=== PATIENT | male | born 1935 | race Caucasian/White ===

== ENCOUNTER 2016-03-29 06:59 | Outpatient (CLI) | payer MEDICARE, OTHER ==
[~2016-03-29] VITALS: Ht 176.5 cm; Wt 96.8 kg
--- NOTE | ~2016-03-29 | HEMODYNAMI ---
PATIENT:ERLIN CARDOZA MEDICAL RECORD: [id number] : 37 LOCATION:[facility] ADMISSION DATE: 03/29/16 Generatedon:03/29/201610:01 Patient name: ERLIN CARDOZA Patient #: [id number] : 1935 Date of study: 03/29/2016 Page: Of Hemodynamic Procedure Report Patient Data Patient Demographics Procedure consent was obtained First Name: ERLIN Gender: Male Last Name: SONY : 1935 Middle Initial: L Age: 80 year(s) Patient #: [id number] Race: SSN: [id number] Additional ID: [id number] Contact details Address: [address] [place] [address] RO[address] State: [place] City: [place] Zip code: [address] Past Medical History History of disease Date Diagnosis Comments CAD Allergies Allergen Reaction Date Comments Reported Iodine 06/27/2015 Other allergy 03/19/2016 iodine Admission Admission Data Admission Date: 03/29/2016 Admission Time: 6:59 Admit Source: Other Height (in.): 69 BSA: 2.12 (m2) Height (cm.): 175.26 BMI: 31.45 (kg/m2) Weight (lbs.): 213 Weight (kg.): 96.62 Lab Results Lab Result Date: 03/29/2016 Lab Result Time: 0:00 Biochemistry Name Units Result Min Max BUN mg/dl 19 --(----)*- 7 18 Creatinine mg/dl 1.1 --(--*-)-- 0.6 1.3 CBC Name Units Result Min Max Hemoglobin g/dl 12.8 -*(----)-- 13.5 17.5 Procedure Procedure Types Cath Procedure PCI Procedure Coronary Stent Initial Procedure Description Procedure Date Procedure Date: 03/29/2016 Procedure Start Time: 9:50 Procedure End Time: 10:00 Procedure Staff Name Function Zhang Angel MD Performing Physician Peggy Vaughan RN Nurse Jonathan Guillen RT Monitor Ant Varner RT Foot Piece Assembler Adrianne Peterson RT Scrub Procedure Data Cath Procedure Fluoroscopy Diagnostic fluoroscopy Total fluoroscopy Time: 1.8 time: 1.8 min min Diagnostic fluoroscopy Total fluoroscopy dose: 229 dose: 229 mGy mGy Contrast Material Contrast Material Type Amount (ml) Isovue 300 32 Entry Location Entry Primary Successful Side Size Upsize Upsize Entry Closure Succes sful Closure Location (Fr) 1 (Fr) 2 (Fr) Remarks Device Remarks Femoral Left 5 Fr 6 Fr artery Short Procedure Complications No complications Procedure Medications Medication Administration Route Dosage Oxygen NC 2 l/min Heparin Flush Bag added to field 2 bags (1000units/500ml NS) Lidocaine 2% added to field 20 Versed I.V. 1 mg Fentanyl I.V. 50 mcg Heparin Bolus I.V. 4000 units Versed I.V. 1 mg Fentanyl I.V. 50 mcg Hemodynamics Rest BSA: 2.12 (m2) HGB: 12.8 (g/dl) O2 Consumption: Estimated: 251.78 (ml/min) O2 Co nsumption indexed: Estimated:118.76 (ml/min/m) Heart Rate: 82 (bpm) Snapshots Pre Cath Intra NCS Post Cath Vital Signs Time Heart Resp SPO2 NIBP (mmHg) Rhythm Pain Sedation Rate (ipm) (%) Status Level (bpm) 9:29:32 83 18 97 172/87(132) NSR 0 (11) 10(A) , No pain 9:33:54 80 17 96 152/80(121) NSR 0 (11) 10(A) , No pain 9:38:10 80 16 97 136/70(101) NSR 0 (11) 10(A) , No pain 9:42:24 77 14 97 120/66(92) NSR 0 (11) 10(A) , No pain 9:46:34 75 16 96 114/61(86) NSR 0 (11) 9(A) , No pain 9:50:40 77 15 96 119/65(85) NSR 0 (11) 9(A) , No pain 9:54:48 76 17 96 125/64(89) NSR 0 (11) 9(A) , No pain 9:58:49 77 14 98 119/63(89) NSR 0 (11) 9(A) , No pain Medications Time Medication Route Dose Verified Delivered Reason Notes Effectiveness by by 9:32:31 Oxygen NC 2 Zhang Peggy Per physician l/min Stanley Vaughan RN 9:32:38 Heparin Flush added 2 Zhang Laurey used for Bag to bags Stanley Angel MD procedure (1000units/500ml field NS) 9:32:45 Lidocaine 2% added 20ml Zhang Zhang used for to vial Stanley Angel MD procedure field 9:49:00 Versed I.V. 1 mg Zhang Peggy for sedation Stanley Vaughan RN 9:49:19 Fentanyl I.V. 50 Zhang Peggy for sedation mcg Stanley Vaughan RN 9:52:18 Versed I.V. 1 mg Zhang Peggy for sedation Stanley Vaughan RN 9:52:28 Fentanyl I.V. 50 Zhang Peggy for sedation mcg Stanley Vaughan RN 9:54:03 Heparin Bolus I.V. 4000 Zhang Peggy for dose units Stanley Vaughan RN anticoagulation verified wtih dr angel Procedure Log Time Note 9:10:05 nAt Varner RT(R) sent for patient. Start room use. 9:25:20 Patient received from Outpatients to CCL 1 Alert and oriented. Tansferred to table in Supine position. 9:26:35 Admit Source: Other 9:28:03 Diagnostic Cath status Elective 9:28:13 Time tracking: Regular hours 9:28:17 Plan of Care:Hemodynamics will remain stable., Cardiac rhythm will remain stable., Comfort level will be maintained., Respiratory function will remain adequate., Patient/ family verbilizes understanding of procedure., Procedure tolerated without complication., Recovers from procedure without complications.. 9:28:21 Warm blankets applied, and robert hugger turned on for patient comfort. 9:28:21 Correct patient and procedure confirmed by team. 9:28:22 Signed procedure consent form obtained from patient. 9:28:23 ECG and BP/O2 sat monitors applied to patient. 9:28:23 Vital chart was started 9:28:34 Rhythm: sinus rhythm 9:28:36 Full Disclosure recording started 9:28:47 H&P Date Dictated: 03/29/2016 New H&P dictated by physician.. 9:28:48 Pre-procedure instructions explained to patient. 9:28:48 Pre-op teaching completed and patient verbalized understanding. 9:28:50 Family in waiting room. 9:28:51 Patient NPO since Midnight. 9:28:55 Is the patient allergic to Iodine/contrast media? Yes. 9:29:04 Was the patient premedicated? Yes 9:29:05 Is patient on blood thinner?Yes 9:29:19 ACC The patient was administered the following blood thiners within the last 24 hours: ACCPlavix 9:29:20 Patient diabetic? Yes. 9:29:22 If diabetic: On Metformin? Yes 9:29:25 If on Metformin: Last Dose? 03/28/2016 9:29:28 Previous problem with sedation/anesthesia? No ? 9:29:29 Snore? Yes 9:29:30 Sleep apnea? No 9:29:31 Deviated septum? No 9:29:32 Opens mouth fully? Yes 9:29:32 Sticks out tongue? Yes 9:29:40 Dentures? Yes IN TIGHT 9:29:43 Pre procedure: left dorsailis pedis pulse 1+ Palpable, but thready & weak; easily obliterated 9:29:52 Patient pain scale 0/10 ?. 9:29:58 IV patent on arrival in left forearm with 0.9% NaCl at O. 9:30:01 Lab results completed and on chart. 9:30:04 Left groin area was prepped with chlora-prep and draped in sterile fashion 9:30:06 Alarms reviewed by R. N. 9:30:06 Sharps counted by scrub and verified by R.N. 9:30:35 Lab Result : BUN 19 mg/dl 9:30:35 Lab Result : Hemoglobin 12.8 g/dl 9:30:35 Lab Result : Creatinine 1.1 mg/dl 9:32:31 Oxygen 2 l/min NC was given by Peggy Vaughan RN; Per physician; 9:32:38 Heparin Flush Bag (1000units/500ml NS) 2 bags added to field was given by Zhang Angel MD; used for procedure; 9:32:45 Lidocaine 2% 20ml vial added to field was given by Zhang Angel MD; used for procedure; 9:33:59 Use device set Femoral PCI 9:34:01 Tegaderm 4 x 4 opened to sterile field. 9:34:01 Acist Manifold opened to sterile field. 9:34:06 Acist Syringe opened to sterile field. 9:34:07 Acist Hand Control opened to sterile field. 9:34:07 Bag Decanter opened to sterile field. 9:34:07 Cardinal Cath Pack opened to sterile field. 9:34:08 Terumo 6Fr Wheatland Sheath opened to sterile field. 9:34:08 St Denis 260cm J .035 wire opened to sterile field. 9:34:09 Merit BasixCompak Inflation Kit opened to sterile field. 9:34:21 Baseline sample Acquired. 9:38:05 Airway obstruction? No ? 9:40:21 Zero performed for pressure channel P1 9:46:09 Patient Height : 175.26 cm 9:46:12 Patient Weight : 96.62 kg 9:48:13 --------ALL STOP TIME OUT------ 9:48:14 Final Timeout: patient, procedure, and site verified with staff and physician. All members of the team are in agreement. 9:48:15 Left groin site verified by team. 9:48:18 Physical assessment completed. ASA score P 2 - A patient with mild systemic disease as per Zhang Angel MD. 9:48:22 Sedation plan: IV Moderate Sedation Versed, Fentanyl 9:49:00 Versed 1 mg I.V. was given by Peggy Vaughan RN; for sedation; 9:49:19 Fentanyl 50 mcg I.V. was given by Peggy Vaughan RN; for sedation; 9:50:28 Procedure started. 9:50:49 Local anesthetic to left femerol artery with Lidocaine 2% by Zhang Angel MD.INITIAL ACCESS ONLY 9:50:57 A 5 Fr sheath was inserted into the Left Femoral artery 9:52:18 Versed 1 mg I.V. was given by Peggy Vaughan RN; for sedation; 9:52:28 Fentanyl 50 mcg I.V. was given by Peggy Vaughan RN; for sedation; 9:52:45 nPicker Launcher 6Fr HS II SH guide catheter opened to sterile field. 9:53:11 Ballesteros Whisper J 300cm 0.014 guide wire opened to sterile field. 9:53:11 Terumo 5Fr Wheatland Sheath opened to sterile field. 9:53:27 Sheath upsized to a 6 Fr Short. 9:53:47 6 Fr HS 2 SH guide catheter was inserted over the wire 9:54:03 Heparin Bolus 4000 units I.V. was given by Peggy Vaughan RN; for anticoagulation; dose verified wt dr angel 9:54:43 ACC PCI Site: pRCA has 80% stenosis. 9:54:45 ACC Pre-intervention AG Flow is 3. 9:54:48 WHISPER wire advanced. 9:56:08 Inflation Number: 1 A Medtronic Resolute 3.5 X 15 stent was prepped and advanced across the Prox RCA. The stent was deployed at 17 GALA for 0:13 (min:sec). 9:56:19 Stent catheter was removed intact over wire. 9:56:20 Wire removed. 9:56:20 Guide catheter removed. 9:56:23 ACC Post-intervention AG Flow is 3. 9:56:55 Contrast amount:Isovue 300 32ml. 9:57:10 Procedure ended.(Physican Out) 9:57:20 Fluoroscopy time 01.80 minutes. 9:57:24 Flurop Dose total: 229 9:57:24 Fluoroscopy dose: 229 mGy 9:57:26 Sharps counted by scrub and verified by R.N. 9:57:26 Insertion/operative site no bleeding no hematoma. 9:57:29 Post-op/insertion site Left Femoral artery dressed using a 4 x 4 and Tegaderm. 9:57:33 Post left femerol artery:stable 9:57:34 Post Procedure Pulses reassessed and unchanged 9:57:37 Post procedure rhythm: sinus rhythm 9:57:39 Post procedure instruction explained to patient.Patient verbalizes understanding. 9:57:53 Vascade 6/7 Fr Closure Device opened to sterile field. 9:58:01 Procedure type changed to Cath procedure, PCI procedure, Coronary Stent Initial 9:58:23 Procedure and supply charges have been captured, reviewed, submitted and are correct. 9:58:27 Procedure Complication : No complications 10:00:21 Vital chart was stopped 10:00:21 See physician's report for complete and final results. 10:00:24 Report given to Post Procedure Room. 10:00:27 Patient transfered to Post Procedure Room with Stretcher. 10:00:30 Procedure ended. 10:00:30 Full Disclosure recording stopped 10:00:36 End room use (Document Last) Intervention Summary Intervention Notes Time ActionType Lesion and Equipment Action# Pressure Duration Attributes Used 9:56:[address] stent Prox RCA Medtronic 1 17 00:13 Resolute 3.5 X 15 stent Device Usage Item Name Manufacture Quantity Catalog Hospital Part Current Minima l Lot# / Number Charge Number Stock Stock Serial# Code Tegaderm 4 1 [id number] [id number] [id number] 5 x 4 Acist Acist 1 05842 187376 074033 869074 5 Manifold Medical Systems Inc Acist Acist 1 17948 179346 798807 664387 20 Syringe Medical Systems Inc Acist Hand Acist 1 95667 227349 497570 822543 5 Control Medical Systems Inc Bag Microtek 1 2002S 465946 22869 864818 5 DecFacile System Medical Inc. Cardinal Cardinal [address] [address] 83715 853841 5 Cath Pack Health Terumo 6Fr Terumo 1 [id number] 112982 645448 235307 [address] Denis 1 384835 868170 470527 464272 30 260cm J .035 wire Merit Merit 1 [id number] 005720 570632 987397 15 BasixIntermountain Healthcarek Medical Inflation Kit Medtronic Medtronic 1 [id number] 569097 76562 347848 1 Launcher 6Fr HS II SH guide catheter Ballesteros Ballesteros 1 [id number] 395567 871389 738263 5 Whisper J Vascular 300cm 0.014 guide wire Terumo 5Fr Terumo 1 [id number] 163654 926083 604513 40 Wheatland Sheath Medtronic Medtronic 1 [id number] 477460 710440 3 [id number] Resolute 3.5 X 15 stent Vascade 6/7 Cardiva 1 [id number] 452038 731759 374338 5 Fr Closure Medical, Device Inc. Signature Audit [place] Stage Time Signature Unsigned Intra-Procedure 03/29/2016 Jonathan Guillen 10:01:38 AM RT(R) Signatures Monitor : Jonathan Guillen RT Signature : Date : Time : [address] [place] [address]
[~2016-03-29 06:59] MED LIST: BAYER CHEWABLE81 MG PO; COREG6.25 MG PO; DESERYL100 MG PO; GEMFIBROZIL600 MG PO; GLUCOPHAGE500 MG PO; LANTUS INSULIN10 ML SC; LASIX20 MG PO; NOVOLOG100 U/M1 SC; PLAVIX75 MG PO; PREDNISONE20 MG PO; PRINIVIL20 MG PO; PROTONIX40 MG PO; QUININE SULFAT324 MG PO; ZOCOR40 MG PO
[2016-03-29 08:04] LABS: BASOPHILS 0.1 % (0.0-2.0); EOSINOPHILS 0 % (0-7); HEMATOCRIT 41.6 % (42.0-54.0); HEMOGLOBIN 12.8 g/dL (13.5-17.5); IMMATURE GRANULOCYTES 0.7 % (0-5); LYMPHOCYTES 13.3 % (15-50); MCH 25.4 pg (26.0-34.0); MCHC 30.8 g/dL (31.0-37.0); MCV 82.7 fL (80.0-100.0); MEAN PLATELET VOLUME 11.8 fL (7.4-10.4); NEUTROPHILS 84.9 % (40-80); RBC 5.03 10x6/uL (4.20-6.10); RDW 16.3 % (11.5-14.5); WBC 7.2 10x3/uL (4.8-10.8)
[2016-03-29 08:11] VITALS: BP 155/74; Ht 176.5 cm; Wt 96.8 kg
[2016-03-29 08:16] LABS: ANION GAP 13.7 mmol/L (8-16); CALCIUM 9.1 mg/dL (8.5-10.1); CARBON DIOXIDE 26.3 mmol/L (21.0-32.0); CREATININE - SERUM 1.1 mg/dL (0.6-1.3)
[2016-03-29 08:30] LABS: PLATELET COUNT 183 10x3/uL (130-400)
--- NOTE | 2016-03-29 10:20 | NUR ---
RESTING QUIETLY WITH EYES CLOSED RESPONDS TO VERBAL WITH CHEST PAIN DENIED. HR 77 BP 159/70 02 AT 2 LITERS NO DISTRESS NOTED. 6 FR VASCADE LEFT GROIN CDI NO BLEEDING NO HEMATOMA NOTED. INSTRUCTED PATIENT TO KEEP HEAD FLAT ON PILLOW WITH LLE STRAIGHT
--- NOTE | 2016-03-29 11:19 | NUR ---
6 FR VASCADE L/GROIN CDI NO BLEEDING NO HEMATOMA NOTED. VSS WITH NEEDS PROVIDED TO BEDSIDE. WILL MONITOR
--- NOTE | 2016-03-29 11:39 | NUR ---
CHEST PAIN DENIED WITH VSS. 6 FR VASCADE L/GROIN CDI NO BLEEDING NO HEMATOMA NOTED. SANDWICH TRAY AND SODA TO BEDSIDE
--- NOTE | 2016-03-29 11:55 | NUR ---
RESTING QUIETLY WITH EYES CLOSED RESPIRATIONS EVEN UNLABORED. VSS 6 FR VASCADE L/GROIN CDI NO BLEEDING NO HEMATOMA NOTED. WILL MONITOR
--- NOTE | 2016-03-29 12:30 | NUR ---
6 FR VASCADE L/GROIN REMAINS STABLE NO BLEEDING NO HEMATOMA NOTED. PATIENT ALERT AND ORIENTED WITH CHEST PAIN DENIED VISITING WITH FAMILY AT SIDE
--- NOTE | 2016-03-29 13:01 | NUR ---
PATIENT SLEEPING QUIETLY WITH RESPIRATIONS EVEN NO DISTRESS NOTED. WILL MONITOR
--- NOTE | 2016-03-29 13:38 | NUR ---
L/GROIN CDI NO BLEEDING NO HEMATOMA NOTED. CHEST PAIN IS DENIED. REPOSITIONED TO SITTING WITH HOB UP 30 DEGREES. AT SIDE
--- NOTE | 2016-03-29 14:21 | NUR ---
PIV REMOVED FROM LEFT ARM WITH DRESSING APPLIED. L/GROIN REMAINS CDI NO BLEEDING NO HEMATOMA NOTED. CHEST PAIN IS DENIED. PATIENT UP TO GET DRESSED FOR DISCHARGE WITH ASSIST FROM 1430 DISCHARGE INSTRUCTIONS GONE OVER WITH PATIENT AND FAMILY TRANSPORTED VIA TO [facility] [place] FOR FAMILY TO DRIVE HOME CHEST PAIN DENIED
--- NOTE | 2016-04-02 11:11 | OP ---
PATIENT NAME: ERLIN CARDOZA MEDICAL RECORD: [id number] :37 LOCATION:[facility] ADMISSION DATE: SURGEON: ALICE DEL VALLE MD DATE OF OPERATION: 03/29/2016 PROCEDURES: 1. PTCA, stent RCA. 2. Selective coronary angiography. INDICATION: Angina and coronary artery disease. PROCEDURE IN DETAIL: After informed consent was obtained and after detailed explanation of risks, benefits, as well as alternative therapies, the patient elected to proceed with angiogram and angioplasty. The left femoral area was prepped and draped in normal sterile fashion. Left femoral artery was cannulated via modified Seldinger technique with placement of 6-Ukrainian sheath. All catheters exchanged through this sheath. FINDINGS: The right coronary has an 80% stenosis proximally. This was addressed with 3.5 x 15 mm Resolute stent. Result was 0% residual stenosis. OVERALL IMPRESSION: Successful percutaneous transluminal coronary angioplasty stent of the right coronary artery going from 80% initial stenosis to 0% residual. TRANSINT:[id number] Voice Confirmation ID: [id number] DOCUMENT ID: [id number] ALICE DEL VALLE MD at 1111 CC: [id number] DICTATION DATE: 03/29/16 0959 TRUCK ASSEMBLER: 03/29/16 1110 [facility] CLI 03/29/[address] [address]
--- NOTE | 2016-04-02 11:11 | HP ---
PATIENT: ERLIN CARDOZA MEDICAL RECORD: [id number] ACCOUNT: [id number] LOCATION:[facility] : 37 ADMISSION DATE: 03/29/16 HISTORY AND PHYSICAL EXAMINATION ADMITTING DIAGNOSES: 1. Angina. 2. Coronary artery disease. 3. Recent percutaneous transluminal coronary angioplasty stent of the left circumflex with concomitant disease of the right coronary artery. 4. Hypertension. 5. Hyperlipidemia. HISTORY OF PRESENT ILLNESS: This is a gentleman who presents with anginal symptomatology, found to have 2-vessel coronary artery disease of the left circumflex and RCA, underwent successful PTCA stent of the circumflex. He is now brought back for PTCA stent of the RCA in a staged fashion. PHYSICAL EXAMINATION: GENERAL APPEARANCE: Well-nourished, well-developed, appears stated age. Level of distress, comfortable. PSYCHIATRIC: Mental status, alert, normal affect. Orientation, oriented to time, place and person. EYES: Lids and conjunctiva, noninjected. No discharge, no pallor. ENT: Lips, teeth, gums, normal dentition. Oropharynx, no cyanosis, no pallor. NECK: Carotid arteries, bilateral normal upstroke, no bruits, no thrills. JUGULAR VEINS: No jugular venous pressure or distention. CERVICAL LYMPH NODES: Nontender, nonenlarged. THYROID: Not enlarged. Nontender. No nodules. LUNGS: Respiratory effort, unlabored. CHEST: Normal curvature. No thoracic deformity. No chest wall tenderness. Percussion, resonant. Auscultation, clear. No wheezes, no rales, no rhonchi. CARDIOVASCULAR: Precordial exam, nondisplaced. No heaves or pericardial thrills. Rate and rhythm, regular. Heart sounds, normal S1, normal S2. No S3, no gallop, no rub. Systolic murmur, not heard. Diastolic murmur, not heard. EXTREMITIES: No cyanosis, no edema. Peripheral pulses, full and equal in all extremities, except as noted. No bruits appreciated. ABDOMEN: Soft, nondistended. Normal aorta. No bruit. Nontender. No masses. Liver, nontender, no hepatomegaly. Spleen, nontender, no splenomegaly. MUSCULOSKELETAL: No joint tenderness. No joint swelling. No erythema. NEUROLOGICAL: Normal gait, normal strength, normal tone. SKIN: Warm and dry. REVIEW OF SYSTEMS: The patient reports easy bruising but reports no swollen glands. The patient reports no fever, no night sweats, no significant weight gain, no significant weight loss. No significant exercise tolerance. The patient reports no dry eyes, no irritation, no vision change. Patient reports no difficulty hearing and no ear pain. Patient reports no frequent nose bleeds or nose and sinus problems. Patient reports on arm pain on exertion. No shortness of breath while lying down. No history of heart murmur. Patient reports no cough, no wheezing or coughing up blood. Patient reports no abdominal pain, no vomiting. Normal appetite. No diarrhea and not vomiting blood. No nausea and no constipation. Patient reports no incontinence. No difficulty urinating. No hematuria. No increased frequency. Patient reports no muscle aches. No weakness, no arthralgias, no back pain. No swelling of the HISTORY AND PHYSICAL [id number] SONYERLIN L extremities. Patient reports no abnormal mole, no jaundice, no rashes. Reports no loss of consciousness. No weakness and no numbness. No seizures, dizziness, or headaches. The patient reports no depression, no sleep disturbance, feeling safe in a relationship and no alcohol abuse. Patient reports on fatigue. Reports no runny nose or sinus pressure. No itching, no hives, and no frequent sneezing. OVERALL IMPRESSION: Anginal symptomatology with significant disease of the right coronary artery. We will proceed with percutaneous transluminal coronary angioplasty stent of the right coronary artery. TRANSINT:[id number] Voice Confirmation ID: [id number] DOCUMENT ID: [id number] ALICE DEL VALLE MD at 1111 CC: [id number] DICTATION DATE: 03/29/1648 MILIEU THERAPIST: 03/29/16 0908 [facility] CLI 03/29/16 [place] [address]
== END 2016-03-29 14:26 | disposition home or self-care (01) ==
LOC: D.CATH 06:59
PROVIDERS: Internal Medicine Interventional Cardiology
DX: I25.10 Atherosclerotic heart disease of native coronary artery without angina pectoris (principal); R06.02 Shortness of breath; E11.9 Type 2 diabetes mellitus without complications

== ENCOUNTER 2016-07-09 08:32 | Outpatient (CLI) | payer MEDICARE, OTHER ==
[~2016-07-09] VITALS: Ht 176.5 cm; Wt 99.5 kg
--- NOTE | ~2016-07-09 | HEMODYNAMI ---
PATIENT:ERLIN CARDOZA MEDICAL RECORD: [id number] : 37 LOCATION:DSxitoCAT ADMISSION DATE: 07/09/16 Generatedon:07/09/201613:17 Patient name: ERLIN CARDOZA Patient #: [id number] : 1935 Date of study: 07/09/2016 Page: Of Hemodynamic Procedure Report Patient Data Patient Demographics Procedure consent was obtained First Name: ERLIN Gender: Male Last Name: SONY : 1935 [facility] Initial: L Age: 80 year(s) Patient #: [id number] Race: SSN: [id number] Additional ID: [id number] Contact details Address: [address] [place] [address] ROAD State: [place] City: [place] Zip code: [address] Past Medical History History of disease Date Diagnosis Comments CAD Allergies Allergen Reaction Date Comments Reported Iodine 06/27/2015 Other allergy 03/19/2016 iodine Other allergy 07/09/2016 Iodine Admission Admission Data Admission Date: 07/09/2016 Admission Time: 8:32 Arrival Date: 07/09/2016 Arrival Time: 10:30 Admit Source: Other Insurance Payor: Medicare Height (in.): 69 BSA: 2.15 (m2) Height (cm.): 175.26 BMI: 32.49 (kg/m2) Weight (lbs.): 220 Weight (kg.): 99.79 Lab Results Lab Result Date: 07/09/2016 Lab Result Time: 0:00 Biochemistry Name Units Result Min Max BUN mg/dl 16 --(---*)-- 7 18 Creatinine mg/dl 1 --(--*-)-- 0.6 1.3 CBC Name Units Result Min Max Hemoglobin g/dl 14.1 --(*---)-- 13.5 17.5 Procedure Procedure Types Cath Procedure Diagnostic Procedure [facility] w/Coronaries PCI Procedure PTCA Initial Miscellaneous Procedures Procedure Description Procedure Date Procedure Date: 07/09/2016 Procedure Start Time: 12:50 Procedure End Time: 13:12 Procedure Staff Name Function Zhang Angel MD Performing Physician Adrianne Peterson RT Scrub Stacie Hayden RN Nurse Sada Rainey RT Monitor Indication Angina Procedure Data Cath Procedure Fluoroscopy Diagnostic fluoroscopy Total fluoroscopy Time: 3.7 time: 3.7 min min Diagnostic fluoroscopy Total fluoroscopy dose: 399 dose: 399 mGy mGy Contrast Material Contrast Material Type Amount (ml) Isovue 300 83 Entry Location Entry Primary Successful Side Size Upsize Upsize Entry Closure Succes sful Closure Location (Fr) 1 (Fr) 2 (Fr) Remarks Device Remarks Femoral Left 5 Fr 6 Fr Exoseal artery Short Estimated blood loss: 10 ml Diagnostic catheters Device Type Used For End Catheter Placement Cordis 5Fr Pigtail Ventriculography Catheter (MP) Cordis 5Fr JL 4.0 Procedure Catheter (MP) Cordis 5Fr 3DRC Catheter Procedure (MP) Procedure Complications No complications Procedure Medications Medication Administration Route Dosage Oxygen NC 2 l/min Lidocaine 2% added to field 20 Heparin Flush Bag added to field 2 bags (1000units/500ml NS) 0.9% NaCl I.V. 100 ml/hr Versed I.V. 1 mg Fentanyl I.V. 50 mcg Versed I.V. 1 mg Fentanyl I.V. 50 mcg Fentanyl I.V. 50 mcg Heparin Bolus I.V. 4000 units Hemodynamics Rest BSA: 2.15 (m2) HGB: 14.1 (g/dl) O2 Consumption: Estimated: 248.54 (ml/min) O2 Co nsumption indexed: Estimated:115.6 (ml/min/m) Heart Rate: 73 (bpm) Snapshots Pre Cath Intra NCS Post Cath Vital Signs Time Heart Resp SPO2 NIBP (mmHg) Rhythm Pain Sedation Rate (ipm) (%) Status Level (bpm) 12:05:06 76 21 95 162/80(128) NSR 0 (11) 10(A) , No pain 12:09:32 75 17 97 165/77(118) NSR 0 (11) 10(A) , No pain 12:13:52 73 16 97 141/72(94) NSR 0 (11) 10(A) , No pain 12:18:11 73 16 94 121/67(94) NSR 0 (11) 10(A) , No pain 12:22:26 73 17 94 126/61(92) NSR 0 (11) 10(A) , No pain 12:26:42 72 18 94 123/66(86) NSR 0 (11) 10(A) , No pain 12:30:55 72 17 93 110/64(97) NSR 0 (11) 10(A) , No pain 12:35:04 72 19 95 114/63(88) NSR 0 (11) 10(A) , No pain 12:39:18 71 17 94 137/68(107) NSR 0 (11) 10(A) , No pain 12:43:34 73 20 94 130/74(100) NSR 0 (11) 10(A) , No pain 12:47:52 72 16 95 109/55(91) NSR 0 (11) 10(A) , No pain 12:52:04 71 16 94 111/57(86) NSR 0 (11) 9(A) , No pain 12:56:19 74 15 94 126/63(89) NSR 0 (11) 9(A) , No pain 13:00:34 73 16 93 106/55(78) NSR 0 (11) 9(A) , No pain 13:04:50 76 16 95 97/54(79) NSR 0 (11) 9(A) , No pain 13:09:02 75 15 95 115/52(79) NSR 0 (11) 9(A) , No pain 13:14:44 76 16 95 111/54(77) NSR 0 (11) 10(A) , No pain Medications Time Medication Route Dose Verified Delivered Reason Notes Effectiveness by by 12:03:18 Oxygen NC 2 Zhang Buffie used for l/min Stanley Hayden RN procedure 12:03:27 Lidocaine 2% added 20ml Zhang Buffie used for to vial Stanley Hayden painter apprentice field 12:03:33 Heparin Flush added 2 Zhang Buffie used for Bag to bags Stanley Hayden painter apprentice (1000units/500ml field NS) 12:03:43 0.9% NaCl I.V. 100 Zhang Buffie Per physician ml/hr Stanley Hayden RN 12:48:51 Versed I.V. 1 mg Zhang Buffie for sedation Stanley Hayden RN 12:48:58 Fentanyl I.V. 50 Zhang Quinones for sedation mcg Stanley Hayden RN 12:57:36 Versed I.V. 1 mg Zhang Quinones for sedation Stanley Hayden RN 12:57:40 Fentanyl I.V. 50 Zhang Quinones for sedation mcg Stanley Hayden RN 13:02:24 Fentanyl I.V. 50 Zhang Quinones for sedation mcg Stanley Hayden RN 13:04:55 Heparin Bolus I.V. 4000 Zhang Quinones for verifi ed units Stanley Hayden RN anticoagulation with dr angel Procedure Log Time Note 11:51:41 Diagnostic Cath Status : Elective 11:52:23 Indication : Angina 11:52:27 Informed consent obtained and on chart 11:53:03 Patient Height : 175.26 cm 11:53:06 Patient Weight : 99.79 kg 11:53:53 Admit Source: Other 11:53:59 Arrival Date: 07/09/2016 10:30:00 AM 11:54:07 Insurance Payor : Medicare 11:56:37 Lab Result : BUN 16 mg/dl 11:56:37 Lab Result : Hemoglobin 14.1 g/dl 11:56:37 Lab Result : Creatinine 1 mg/dl 11:56:54 Stacie Hayden RN sent for patient. Start room use. 11:56:56 Time tracking: Regular hours 11:57:00 Plan of Care:Hemodynamics will remain stable., Cardiac rhythm will remain stable., Comfort level will be maintained., Respiratory function will remain adequate., Patient/ family verbilizes understanding of procedure., Procedure tolerated without complication., Recovers from procedure without complications.. 12:03:18 Oxygen 2 l/min NC was administered by Stacie Hayden RN; used for procedure; 12:03:27 Lidocaine 2% 20ml vial added to field was administered by Stacie Hayden RN; used for procedure; 12:03:33 Heparin Flush Bag (1000units/500ml NS) 2 bags added to field was administered by Stacie Hayden RN; used for procedure; 12:03:43 0.9% NaCl 100 ml/hr I.V. was administered by Stacie Hayden RN; Per physician; 12:03:47 Vital chart was started 12:06:48 Patient received from Pre/Post Procedure Room to CCL 3 Alert and oriented. Tansferred to table in Supine position. 12:06:57 Warm blankets applied, and robert hugger turned on for patient comfort. 12:06:58 Correct patient and procedure confirmed by team. 12:06:58 ECG and BP/O2 sat monitors applied to patient. 12:07:00 Baseline sample Acquired. 12:07:05 Rhythm: sinus rhythm 12:07:06 Full Disclosure recording started 12:07:22 H&P Date Dictated: 07/07/2016 Within 30 days and on chart., H&P Addendum completed by physician on day of procedure. (MUST COMPLETE FOR ALL OUTPATIENTS). 12:07:23 Pre-procedure instructions explained to patient. 12:07:26 Pre-op teaching completed and patient verbalized understanding. 12:07:27 Family in waiting room. 12:07:29 Patient NPO since Midnight. 12:08:46 Patient allergic to Other allergyIodine 12:08:51 Is the patient allergic to Iodine/contrast media? Yes. 12:08:52 Was the patient premedicated? Yes 12:08:54 Snore? Yes 12:09:07 Dentures? Yes tight 12:09:18 Is patient on blood thinner?Yes 12:09:21 ACC The patient was administered the following blood thiners within the last 24 hours: ACCPlavix 12:09:23 Patient diabetic? No. 12:09:27 Previous problem with sedation/anesthesia? No ? 12:11:11 Lab results completed and on chart. 12:11:18 Right groin area was prepped with chlora-prep and draped in sterile fashion 12:11:20 Alarms reviewed by R. N. 12:11:21 Sharps counted by scrub and verified by R.N. 12:11:22 Physician paged 12:12:50 Use device set Femoral Dx 12:12:52 Acist Syringe opened to sterile field. 12:12:52 Bag Decanter opened to sterile field. 12:12:52 Medline Cath Pack opened to sterile field. 12:12:53 Terumo 5Fr Lambert Sheath opened to sterile field. 12:12:53 St Denis 260cm J .035 wire opened to sterile field. 12:12:55 Acist Hand Control opened to sterile field. 12:12:55 Acist Manifold opened to sterile field. 12:12:55 Diagnostic Infinity 5Fr Multipack catheter opened to sterile field. 12:12:56 Tegaderm 4 x 4 opened to sterile field. 12:17:31 Procedure type changed to Cath procedure, Diagnostic procedure, LHC, LHC w/Coronaries, PCI procedure, PTCA Initial, Miscellaneous Procedures 12:21:57 Zero performed for pressure channel P1 12:47:56 Physician arrived 12:47:58 --------ALL STOP TIME OUT------ 12:47:58 Final Timeout: patient, procedure, and site verified with staff and physician. All members of the team are in agreement. 12:48:00 Right groin site verified by team. 12:48:04 Physical assessment completed. ASA score P 2 - A patient with mild systemic disease as per Zhang Angel MD. 12:48:08 Sedation plan: IV Moderate Sedation Versed, Fentanyl 12:48:51 Versed 1 mg I.V. was administered by Stacie Hayden RN; for sedation; 12:48:58 Fentanyl 50 mcg I.V. was administered by Stacie Hayden RN; for sedation; 12:50:36 Procedure started. 12:50:40 Local anesthetic to right femoral artery with Lidocaine 2% by Zhang Angel MD.INITIAL ACCESS ONLY 12:52:48 Merit 18G 9cm Percutaneous Entry needle opened to sterile field. 12:55:41 Stent in Rt femoral 12:55:47 Local anesthetic to left femerol artery with Lidocaine 2% by Zhang Angel MD.ADDITIONAL ACCESS 12:55:59 A 5 Fr sheath was inserted into the Left Femoral artery 12:57:36 Versed 1 mg I.V. was administered by Stacie Hayden RN; for sedation; 12:57:40 Fentanyl 50 mcg I.V. was administered by Stacie Hayden RN; for sedation; 12:58:39 A Cordis 5Fr Pigtail Catheter (MP) was advanced over the wire and used for Ventriculography. 13:00:18 EF : 40 % 13:00:20 Catheter removed. 13:00:33 A Cordis 5Fr JL 4.0 Catheter (MP) was advanced over the wire and used for Procedure. 13:00:37 LCA angiography performed. 13:02:24 Fentanyl 50 mcg I.V. was administered by Stacie Hayden RN; for sedation; 13:03:10 A Cordis 5Fr 3DRC Catheter (MP) was advanced over the wire and used for Procedure. 13:03:14 RCA angiography performed. 13:04:55 Heparin Bolus 4000 units I.V. was administered by Stacie Hayden RN; for anticoagulation; verified with dr angel 13:05:32 Catheter removed. 13:05:33 Proceeding to intervention. 13:06:09 Terumo 6Fr Lambert Sheath opened to sterile field. 13:06:10 MedAudioCatch Launcher 6Fr HS II SH guide catheter opened to sterile field. 13:06:10 Ballesteros Whisper J 300cm 0.014 guide wire opened to sterile field. 13:06:11 DiglyixCompaproVITAL Inflation Kit opened to sterile field. 13:06:27 6 Fr HS2 sh guide catheter was inserted over the wire 13:06:39 Sheath upsized to a 6 Fr Short. 13:08:20 Inflation number: 1 A [place] Sci Nash 3.5 X 15 balloon was prepped and advanced across the Mid RCA, then inflated to 21 GALA for 0:10 (min:sec). 13:08:39 Inflation number: 2 The [place] Sci Nash 3.5 X 15 balloon was reinflated across the Mid RCA, to 21 GALA for 0:10 (min:sec). 13:09:06 Inflation number: 3 The [place] Sci Nash 3.5 X 15 balloon was reinflated across the Mid RCA, to 21 GALA for 0:10 (min:sec). 13:09:36 Cordis 6Fr Exoseal opened to sterile field. 13:09:45 Balloon removed over the wire. 13:09:47 Wire removed. 13:09:47 Guide catheter removed. 13:10:02 Sheath removed intact; hemostasis achieved with Exoseal to the Left Femoral artery. 13:10:10 Procedure ended.(Physican Out) 13:10:26 Fluoroscopy time 03.70 minutes. 13:10:29 Fluoroscopy dose: 399 mGy 13:10:29 Flurop Dose total: 399 13:10:39 Contrast amount:Isovue 300 83ml. 13:10:40 Sharps counted by scrub and verified by R.N. 13:10:43 Insertion/operative site no bleeding no hematoma. 13:10:51 Post left femerol artery:stable 13:10:56 Post Procedure Pulses reassessed and unchanged 13:11:01 Post-procedure physical assessment completed. ASA score P 2 - A patient with mild systemic disease as per Zhang Angel MD. 13:11:10 Post procedure rhythm: unchanged. 13:11:13 Estimated blood loss: 10 ml 13:11:15 Post procedure instruction explained to patient.Patient verbalizes understanding. 13:11:16 Patient needs reinforcement of post procedure teaching. 13:11:25 Procedure and supply charges have been captured, reviewed, submitted and are correct. 13:11:49 Procedure Complication : No complications 13:11:53 Vital chart was stopped 13:11:54 See physician's report for complete and final results. 13:11:55 Report given to Pre/Post Procedure Room. 13:11:59 Patient transfered to Pre/Post Procedure Room with Stretcher. 13:12:01 Procedure ended. 13:12:01 Full Disclosure recording stopped 13:15:16 Tegaderm 4 x 4 opened to sterile field. Intervention Summary Intervention Notes Time ActionType Lesion and Equipment Action# Pressure Duration Attributes Used 13:08:20 Inflate Mid RCA [place] 1 21 00:10 balloon Sci Nash 3.5 X 15 balloon 13:08:39 Reinflate Mid RCA [place] 2 21 00:10 balloon Sci Nash 3.5 X 15 balloon 13:09:06 Reinflate Mid RCA [place] 3 21 00:10 balloon Sci Nash 3.5 X 15 balloon Device Usage Item Name Manufacture Quantity Catalog Number Hospital Part Current Min imal Lot# / Charge Number Stock Stock Serial# Code Acist Acist 1 [id number] 669069 320354 20 Syringe Medical [employer] Inc Bag Decanter Microtek 1 2002S [id number] 11395 167649 5 Medical Inc. Medline Cath Cardinal 1 [id number] 078698 90830 387063 5 Pack Health Terumo 5Fr Terumo 1 [id number] 305831 124596 515115 [address] Denis 1 913706 758667 420049 673530 30 260cm J .035 wire Acist Hand Acist 1 30733 679457 881307 319191 5 Control Medical Systems Inc Acist Acist 1 84657 783914 982378 585225 5 Manifold Medical Systems Inc Diagnostic Cardinal 1 SR3512 792174 16954 875133 30 Infinity 5Fr Health Multipack catheter Tegaderm 4 x 3M 2 1626W 122906 887645 447715 5 4 Merit 18G Merit 1 [id number] 193252 933221 707724 5 9cm Medical Percutaneous Entry needle Cordis 5Fr Cardinal 1 840111 5 Pigtail Health Catheter (MP) Cordis 5Fr Cardinal 1 213616 5 JL 4.0 Health Catheter (MP) Cordis 5Fr Cardinal 1 966558 5 3DRC Health Catheter (MP) Terumo 6Fr Terumo 1 [id number] 963581 958451 021674 40 Lambert Sheath Medtronic Medtronic 1 [id number] 497509 74669 694083 1 Launcher 6Fr HS II SH guide catheter Ballesteros Ballesteros 1 [id number] 394288 571489 546186 5 Whisper J Vascular 300cm 0.014 guide wire Merit Merit 1 EL1428 781411 324861 607860 15 BasixCompak Medical Inflation Kit [place] Sci [place] 1 [id number] 486158 689521 490044 1 [id number] Nash 3.5 Scientific X 15 balloon Cordis 6Fr Cardinal 1 EX600 669036 301100 591980 10 [facility] newMentor Signature Audit [place] Stage Time Signature Unsigned Intra-Procedure 07/09/2016 Sada Rainey 1:16:56 PM RT(R) Signatures Monitor : Sada Rainey Signature : RT Date : Time : [facility] [address] [place] [address]
[2016-07-09 09:51] VITALS: BP 157/59; Ht 176.5 cm; Wt 99.5 kg
[2016-07-09 10:02] LABS: BASOPHILS 0.6 % (0-2); EOSINOPHILS 3.5 % (0-7); HEMATOCRIT 44.4 % (42.0-54.0); HEMOGLOBIN 14.1 g/dL (13.5-17.5); MCH 27.5 pg (26.0-34.0); MCHC 31.8 g/dL (31.0-37.0); MCV 86.7 fL (80.0-100.0); MEAN PLATELET VOLUME 11.8 fL (7.4-10.4); MONOCYTES 8.7 % (2-11); NEUTROPHILS 62.2 % (40-80); PLATELET COUNT 217 10x3/uL (130-400); RBC 5.12 10x6/uL (4.20-6.10); WBC 7.2 10x3/uL (4.8-10.8)
[2016-07-09 10:18] LABS: CALC OSMOLALITY 275 mosm/kg (275-300); CALCIUM 9.2 mg/dL (8.5-10.1); CHLORIDE - SERUM 104 mmol/L (98-107); POTASSIUM - SERUM 4.4 mmol/L (3.5-5.1); SODIUM 137 mmol/L (136-145); UREA NITROGEN 16 mg/dL (7-18); eGFR NON AFRICAN AMERICAN 76 mL/min (90-120)
[2016-07-09 10:20] LABS: GLUCOSE 125 mg/dL (74-106)
--- NOTE | 2016-07-09 13:59 | NUR ---
1345-LEFT GROIN REMAINS SOFT TO TOUCH, NO BLEEDING NOTED
--- NOTE | 2016-07-09 17:31 | NUR ---
1415-RIGHT GROIN WITH TEGADERM CDI, LEFT GROIN CDI, NO HEMATOMA OR BLEEDING NOTED, SOFT TO TOUCH
--- NOTE | 2016-07-14 08:06 | OP ---
PATIENT NAME: ERLIN CARDOZA MEDICAL RECORD: [id number] :37 LOCATION:D.CAT ADMISSION DATE: SURGEON: ALICE DEL VALLE MD DATE OF OPERATION: 07/09/2016 PROCEDURES: 1. PTCA RCA. 2. Left heart catheterization. 3. Selective coronary angiography. 4. Left ventriculogram. INDICATION: Angina and coronary artery disease. PROCEDURE IN DETAIL: After informed consent was obtained and after detailed explanation of risks, benefits as well as alternative therapies, the patient elected to proceed with angiogram and angioplasty. The left femoral area was prepped and draped in normal sterile fashion. Left femoral artery was cannulated via modified Seldinger technique with placement of 6-Slovenian sheath. All catheters exchanged through this sheath. FINDINGS: Left ventriculogram was performed in the standard 30-degree ALEJANDRO view, reveals global hypokinesis throughout all segments. Overall ejection fraction 40% to 45%. SELECTIVE CORONARY ANGIOGRAPHY: 1. Left main is with no significant angiographic disease. 2. Left anterior descending has previously placed stents, these are widely patent with no significant restenosis. No disease elsewhere throughout the LAD or its branches. 3. Left circumflex has moderate irregularities, but no flow-limiting stenosis. 4. Right coronary has previously placed stents. There is a new area of 70% to 75% in-stent restenosis in the mid vessel. It appears that there is already 2 stents in this area. High pressure ballooning PTCA of the in-stent restenosis in the mid RCA, we used a 3.5 balloon taken to 21 atmospheres. Result was 0% residual stenosis. OVERALL IMPRESSION: Successful high pressure percutaneous transluminal coronary angioplasty for in-stent restenosis of the right coronary artery going from 70% to 75% initial stenosis to 0% residual. TRANSINT:[id number] Voice Confirmation ID: [id number] DOCUMENT ID: [id number] ALICE DEL VALLE MD at 0806 CC: [id number] DICTATION DATE: 07/09/16 1313 FOOT CUTTER: 07/09/16 1900 DEP CLI 07/09/16 [facility] [address] [place] [address]
== END 2016-07-09 17:15 | disposition home or self-care (01) ==
LOC: D.CATH 08:32
PROVIDERS: Internal Medicine Interventional Cardiology
DX: I25.10 Atherosclerotic heart disease of native coronary artery without angina pectoris (principal); I10 Essential (primary) hypertension; E78.5 Hyperlipidemia, unspecified; R06.09 Other forms of dyspnea; E11.9 Type 2 diabetes mellitus without complications; Z01.812 Encounter for preprocedural laboratory examination

== ENCOUNTER 2016-11-17 07:43 | Outpatient (CLI) | payer MEDICARE, OTHER ==
[~2016-11-17] VITALS: Ht 176.5 cm; Wt 97.7 kg
--- NOTE | ~2016-11-17 | HEMODYNAMI ---
PATIENT:ERLIN CARDOZA MEDICAL RECORD: [id number] : 37 LOCATION:[facility]xt[facility]CAT ADMISSION DATE: 11/17/16 Generatedon:11/17/201610:55 Patient name: ERLIN CARDOZA Patient #: [id number] : 1935 Date of study: 11/17/2016 Page: Of Hemodynamic Procedure Report Patient Data Patient Demographics Procedure consent was obtained First Name: ERLIN Gender: Male Last Name: SONY : 1935 Middle Initial: L Age: 81 year(s) Patient #: [id number] Race: SSN: [id number] Additional ID: [id number] Contact details Address: [address] [place] [address] ROAD State: [place] City: [place] Zip code: [address] Past Medical History History of disease Date Diagnosis Comments CAD Allergies Allergen Reaction Date Comments Reported Iodine 06/27/2015 Other allergy 03/19/2016 iodine Other allergy 07/09/2016 Iodine Admission Admission Data Admission Date: 11/17/2016 Admission Time: 7:43 Arrival Date: 11/17/2016 Arrival Time: 10:30 Admit Source: Other Insurance Payor: Medicare Height (in.): 69 BSA: 2.13 (m2) Height (cm.): 175.26 BMI: 31.75 (kg/m2) Weight (lbs.): 215 Weight (kg.): 97.52 Lab Results Lab Result Date: 11/17/2016 Lab Result Time: 0:00 Biochemistry Name Units Result Min Max BUN mg/dl 17 --(---*)-- 7 18 Creatinine mg/dl 1.2 --(---*)-- 0.6 1.3 CBC Name Units Result Min Max Hemoglobin g/dl 14.6 --(-*--)-- 13.5 17.5 Procedure Procedure Types Cath Procedure Diagnostic Procedure LHC [facility] w/Coronaries PCI Procedure Coronary Stent Initial Miscellaneous Procedures Moderate Sedation up to 30 minutes Peripheral Cath Diagnostic Procedure Cath Peripheral Ywkrp-Gyccvcg-Wnf-Off Procedure Description Procedure Date Procedure Date: 11/17/2016 Procedure Start Time: 10:36 Procedure End Time: 10:52 Procedure Staff Name Function Zhang Angel MD Performing Physician Adrianne Peterson RT Scrub Waleska Flores RN Nurse Sada Rainey RT Monitor Procedure Data Cath Procedure Fluoroscopy Diagnostic fluoroscopy Total fluoroscopy Time: 3.1 time: 3.1 min min Diagnostic fluoroscopy Total fluoroscopy dose: dose: 1041 mGy 1041 mGy Contrast Material Contrast Material Type Amount (ml) Isovue 300 110 Entry Location Entry Primary Successful Side Size Upsize Upsize Entry Closure Succes sful Closure Location (Fr) 1 (Fr) 2 (Fr) Remarks Device Remarks Femoral Right 5 Fr 6 Fr Exoseal artery Short Estimated blood loss: 5 ml Diagnostic catheters Device Type Used For End Catheter Placement Cordis 5Fr Pigtail Multi-vessel Catheter (MP) Angiography Cordis 5Fr JL 4.0 Left Coronary Catheter (MP) Angiography Cordis 5Fr 3DRC Catheter Right Coronary (MP) Angiography Procedure Complications No complications Procedure Medications Medication Administration Route Dosage Oxygen NC 2 l/min Heparin Flush Bag added to field 2 bags (1000units/500ml NS) Lidocaine 2% added to field 20 Versed I.V. 1 mg Fentanyl I.V. 50 mcg Fentanyl I.V. 25 mcg Versed I.V. 0.5 mg Heparin Bolus I.V. 4000 units Plavix P.O. 75 mg Hemodynamics Rest BSA: 2.13 (m2) HGB: 14.6 (g/dl) O2 Consumption: Estimated: 257.4 (ml/min) O2 Con sumption indexed: Estimated:120.85 (ml/min/m) Heart Rate: 88 (bpm) Pressure Samples Time Site Value (mmHg) Purpose Heart Use Rate(bpm) 10:38 LV 162/31,49 Snapshot 82 Snapshots Pre Cath Intra NCS Post Cath Vital Signs Time Heart Resp SPO2 NIBP (mmHg) Rhythm Pain Sedation Rate (ipm) (%) Status Level (bpm) 9:54:16 89 18 95 173/83(137) NSR 0 (11) 10(A) , No pain 9:58:44 87 16 95 175/84(139) NSR 0 (11) 10(A) , No pain 10:03:12 85 19 94 175/87(144) NSR 0 (11) 10(A) , No pain 10:07:40 83 16 89 172/73(118) NSR 0 (11) 10(A) , No pain 10:12:01 85 19 94 164/78(114) NSR 0 (11) 10(A) , No pain 10:16:23 80 17 93 167/74(121) NSR 0 (11) 10(A) , No pain 10:20:41 82 18 90 143/77(115) NSR 0 (11) 10(A) , No pain 10:24:57 84 16 91 154/75(109) NSR 0 (11) 9(A) , No pain 10:29:09 82 18 91 139/74(108) NSR 0 (11) 9(A) , No pain 10:33:27 83 16 88 139/75(107) NSR 0 (11) 9(A) , No pain 10:37:43 81 19 93 152/79(117) NSR 0 (11) 9(A) , No pain 10:42:03 81 17 87 158/72(119) NSR 0 (11) 9(A) , No pain 10:46:25 83 19 90 148/71(119) NSR 0 (11) 9(A) , No pain 10:50:43 82 18 93 150/73(110) NSR 0 (11) 9(A) , No pain Medications Time Medication Route Dose Verified Delivered Reason Notes Effectiveness by by 9:52:35 Oxygen NC 2 Waleska Waleska used for l/min Flores Flores helper driver RN 9:52:46 Heparin Flush added 2 Waleska Waleska for local Bag to bags Flores Flores anesthetic (1000units/500ml field OCAMPO RN NS) 9:52:54 Lidocaine 2% added 20ml Waleska Waleska for local to vial Flores Flores anesthetic field DAMARIS OCAMPO 10:24:48 Versed I.V. 1 mg Waleska Waleska for sedation Sandra Flores RN RN 10:24:55 Fentanyl I.V. 50 Waleska Waleska for sedation mcg Sandra Flores RN RN 10:37:40 Fentanyl I.V. 25 Waleska Waleska for sedation mcg Sandra Flores RN RN 10:37:44 Versed I.V. 0.5 Waleska Waleska for sedation mg Sandra Flores RN RN 10:47:38 Heparin Bolus I.V. 4000 Waleskalinn Galeano for units Sandra Flores anticoagulation RN RN 10:54:03 Plavix P.O. 75 mg Waleska Galeano for Flores Sandra antiplatelet RN RN therapy Procedure Log Time Note 9:30:41 Informed consent obtained and on chart 9:30:57 Admit Source: Other 9:31:09 Arrival Date: 11/17/2016 10:30:00 AM 9:31:17 Insurance Payor : Medicare 9:31:22 Patient Height : 175.26 cm 9:31:39 Patient Weight : 97.52 kg 9:32:46 Diagnostic Cath Status : Elective 9:33:11 Waleska Flores RN sent for patient. Start room use. 9:33:13 Time tracking: Regular hours 9:33:17 Plan of Care:Hemodynamics will remain stable., Cardiac rhythm will remain stable., Comfort level will be maintained., Respiratory function will remain adequate., Patient/ family verbilizes understanding of procedure., Procedure tolerated without complication., Recovers from procedure without complications.. 9:42:20 Lab Result : BUN 17 mg/dl 9:42:20 Lab Result : Hemoglobin 14.6 g/dl 9:42:20 Lab Result : Creatinine 1.2 mg/dl 9:46:19 Patient received from Pre/Post Procedure Room to [facility] 2 Alert and oriented. Tansferred to table in Supine position. 9:46:20 Warm blankets applied, and robert hugger turned on for patient comfort. 9:46:21 Correct patient and procedure confirmed by team. 9:46:21 ECG and BP/O2 sat monitors applied to patient. 9:52:35 Oxygen 2 l/min NC was administered by Waleska Flores RN; used for procedure; 9:52:46 Heparin Flush Bag (1000units/500ml NS) 2 bags added to field was administered by Waleska Flores RN; for local anesthetic; 9:52:54 Lidocaine 2% 20ml vial added to field was administered by Waleska Flores RN; for local anesthetic; 9:53:02 Vital chart was started 9:53:03 Baseline sample Acquired. 9:53:07 Rhythm: sinus rhythm 9:53:09 Full Disclosure recording started 9:53:23 H&P Date Dictated: 11/15/2016 Within 30 days and on chart., H&P Addendum completed by physician on day of procedure. (MUST COMPLETE FOR ALL OUTPATIENTS). 9:53:27 Pre-procedure instructions explained to patient. 9:53:28 Pre-op teaching completed and patient verbalized understanding. 9:53:29 Family in waiting room. 9:53:32 Patient NPO since Midnight. 9:56:30 Is the patient allergic to Iodine/contrast media? Yes. 9:56:30 Was the patient premedicated? Yes 9:56:31 Is patient on blood thinner?Yes 9:56:34 ACC The patient was administered the following blood thiners within the last 24 hours: ACCPlavix 9:56:36 Patient diabetic? Yes. 9:56:37 If diabetic: On Metformin? Yes 9:56:43 If on Metformin: Last Dose? 11/16/2016 9:56:47 Previous problem with sedation/anesthesia? No ? 9:56:49 Snore? Yes 9:56:50 Sleep apnea? No 9:56:51 Deviated septum? No 9:56:51 Opens mouth fully? Yes 9:56:52 Sticks out tongue? Yes 9:57:04 Airway obstruction? No ? 9:57:11 Dentures? Yes in tight 9:57:14 Pre procedure: left dorsailis pedis pulse Doppler 9:57:14 Pre procedure: right dorsailis pedis pulse Doppler 9:57:18 Patient pain scale 0/10 ?. 9:57:28 IV patent on arrival in left forearm with 0.9% NaCl at KVO. 9:57:51 Lab results completed and on chart. 9:58:18 Left groin area was prepped with chlora-prep and draped in sterile fashion 9:58:19 Alarms reviewed by R. N. 9:58:20 Sharps counted by scrub and verified by R.N. 10:10:06 Zero performed for pressure channel P1 10:22:31 Physician arrived 10:22:31 --------ALL STOP TIME OUT------ 10:22:32 Final Timeout: patient, procedure, and site verified with staff and physician. All members of the team are in agreement. 10:22:34 Bilateral groins site verified by team. 10:22:36 Physical assessment completed. ASA score P 2 - A patient with mild systemic disease as per Zhang Angel MD. 10:22:40 Sedation plan: IV Moderate Sedation Versed, Fentanyl 10::48 Versed 1 mg I.V. was administered by Waleska Flores RN; for sedation; 10::55 Fentanyl 50 mcg I.V. was administered by Waleska Flores RN; for sedation; 10::42 Use device set Femoral Dx 10::44 Acist Syringe opened to sterile field. 10:28:44 Bag Decanter opened to sterile field. 10:28:45 Medline Cath Pack opened to sterile field. 10:28:45 Terumo 5Fr [place] Sheath opened to sterile field. 10:28:46 St Denis 260cm J .035 wire opened to sterile field. 10:28:47 Acist Hand Control opened to sterile field. 10:28:47 Acist Manifold opened to sterile field. 10:28:48 Diagnostic Infinity 5Fr Multipack catheter opened to sterile field. 10:28:48 Tegaderm 4 x 4 opened to sterile field. 10:35:14 Procedure started. 10:36:54 Local anesthetic to left femerol artery with Lidocaine 2% by Zhang Angel MD.INITIAL ACCESS ONLY 10:36:55 A 5 Fr sheath was inserted into the Right Femoral artery 10:37:38 Procedure type changed to Cath procedure, Diagnostic procedure, LHC, LHC w/Coronaries, PCI procedure, Coronary Stent Initial, Miscellaneous Procedures, Moderate Sedation up to 30 minutes, Peripheral Cath Diagnostic Procedure, Cath Peripheral, Eeebu-Haccffd-Rxy-Off 10:37:40 Fentanyl 25 mcg I.V. was administered by Waleska Flores RN; for sedation; 10::44 Versed 0.5 mg I.V. was administered by Waleska Flores RN; for sedation; 10::55 A Cordis 5Fr Pigtail Catheter (MP) was advanced over the wire and used for Multi-vessel Angiography. 10:38:47 LV hemodynamics recorded. 10:38:48 LV gram done using ALEJANDRO 10:38:51 Injector settings: Ml/sec: 5, Volume: 15, 10:38:56 EF : 50 % 10:39:06 Abdominal angiogram w/ runoff was performed. 10:39:13 Injector settings: Ml/sec: 10, Volume: 20, 10:40:31 Catheter removed. 10:40:43 A Cordis 5Fr JL 4.0 Catheter (MP) was advanced over the wire and used for Left Coronary Angiography. 10:41:42 LCA angiography performed. 10:41:45 Injector settings: Ml/sec: 3, Volume: 6, 10:44:03 Catheter removed. 10:44:28 A Cordis 5Fr 3DRC Catheter (MP) was advanced over the wire and used for Right Coronary Angiography. 10:44:52 RCA angiography performed. 10:44:55 Injector settings: Ml/sec: 3, Volume: 6, 10:45:01 Catheter removed. 10:45:07 Proceeding to intervention. 10:47:15 Holidogtronic Launcher 6Fr HS II guide catheter opened to sterile field. 10:47:17 MediumumWhatsApp 6Fr Gu[place] Sheath opened to sterile field. 10:47:18 Ballesteros Shypisper J 300cm 0.014 guide wire opened to sterile field. 10:47:19 mnlakeplace.comixCompak Inflation Kit opened to sterile field. 10:47:38 Heparin Bolus 4000 units I.V. was administered by Waleska Flores RN; for anticoagulation; 10:48:19 Sheath upsized to a 6 Fr Short. 10:48:25 6 Fr hs 2 guide catheter was inserted over the wire 10:48:30 OfferLoungeisper wire advanced. 10:50:04 Inflation Number: 1 A [place] OTW 3.5 x 15 stent was prepped and advanced across the Mid RCA. The stent was deployed at 21 GALA for 0:10 (min:sec). 10:50:08 Stent catheter was removed intact over wire. 10:50:09 Wire removed. 10:50:09 Guide catheter removed. 10:50:16 Cordis 6Fr Exoseal opened to sterile field. 10:50:24 Sheath removed intact; hemostasis achieved with Exoseal to the Right Femoral artery. 10:50:26 Procedure ended.(Physican Out) 10:50:52 Fluoroscopy time 03.10 minutes. 10:51:01 Fluoroscopy dose: 1041 mGy 10:51:01 Flurop Dose total: 1041 10:51:05 Contrast amount:Isovue 300 110ml. 10:52:01 Sharps counted by scrub and verified by R.N. 10:52:02 Insertion/operative site no bleeding no hematoma. 10:52:06 Post-op/insertion site Left Femoral artery dressed using a 4 x 4 and Tegaderm. 10:52:09 Post left femerol artery:stable 10:52:10 Post Procedure Pulses reassessed and unchanged 10:52:13 Post procedure rhythm: unchanged. 10:52:15 Estimated blood loss: 5 ml 10:52:16 Post procedure instruction explained to patient.Patient verbalizes understanding. 10:52:17 Patient needs reinforcement of post procedure teaching. 10:52:18 Procedure and supply charges have been captured, reviewed, submitted and are correct. 10:52:23 Procedure Complication : No complications 10:52:25 Vital chart was stopped 10:52:26 See physician's report for complete and final results. 10:52:42 Report given to Pre/Post Procedure Room. 10:52:45 Patient transfered to Pre/Post Procedure Room with Stretcher. 10:52:48 Procedure ended. 10:52:48 Full Disclosure recording stopped 10:52:55 ACC-PCI Only Patient was given prescriptions, or instructed by Zhang Angel MD to start/continue the following medications upon discharge: Plavix 10:52:56 End room use (Document Last) 10:54:03 Plavix 75 mg P.O. was administered by Waleska Flores RN; for antiplatelet therapy; Intervention Summary Intervention Notes Time ActionType Lesion and Equipment Action# Pressure Duration Attributes Used 10:50:04 Place stent Mid RCA [place] OTW 1 21 00:10 3.5 x 15 stent Device Usage Item Name Manufacture Quantity Catalog Hospital Part Current [facility] l Lot# / Number Charge Number Stock Stock Serial# Code Acist Acist 1 14711 734665 152258 948528 20 Syringe Medical [employer] Inc Bag Microtek 1 2002S 797171 03878 781181 5 Decanter Medical Inc. Medline Cardinal 1 [id number] 982266 34260 871211 5 Cath Pay4later Terumo 5Fr Terumo 1 UQT996 168651 310543 085923 [address] [facility] [address] Denis 1 764302 308793 050878 580619 30 260cm J .035 wire Acist Hand Acist 1 58014 029353 100480 571865 5 Quintura [employer] Inc Acist Acist 1 75389 383605 971681 395551 5 SST Inc. (Formerly ShotSpotter) Medical Systems Inc Diagnostic Cardinal 1 [id number] 322090 77787 584835 30 [facility] 5Fr Multipack catheter Tegaderm 4 3M 1 1626W 782369 427363 117381 5 x 4 Cordis 5Fr Cardinal 1 042455 5 Pigtail Health Catheter (MP) Cordis 5Fr Cardinal 1 230988 5 JL 4.0 Health Catheter (MP) Cordis 5Fr Cardinal 1 136997 5 3DRC Health Catheter (MP) Medtronic Medtronic 1 [id number] 794392 63206 098513 1 Launcher 6Fr HS II guide catheter Terumo 6Fr Terumo 1 URQ204 410840 462338 284926 40 Guys Mills Sheath Ballesteros Ballesteros 1 [id number] 914744 314767 284550 5 [facility] J Vascular 300cm 0.014 guide wire [facility] 1 AT5024 530241 016528 672166 15 [facility] Medical Inflation Kit [place] OTW Medtronic 1 [id number] 566858 9517748 954584 5 [id number] 3.5 x 15 stent Cordis 6Fr Cardinal 1 EX600 558979 663746 195928 10 [facility] Spinlight Studio Signature Audit [place] Stage Time Signature Unsigned Intra-Procedure 11/17/2016 Adrianne Peterson 10:55:39 AM RT(R) Signatures Monitor : Sada Rainey Signature : RT Date : Time : [facility] [address] [place] [address]
[2016-11-17] MEDS ORDERED: METOPROLOL TART50 MG PO (08:00)
[2016-11-17 08:05] VITALS: BP 186/73; Ht 176.5 cm; Wt 97.7 kg
[2016-11-17 08:36] LABS: BASOPHILS 0.1 % (0-2); EOSINOPHILS 0 % (0-7); HEMATOCRIT 45.4 % (42.0-54.0); HEMOGLOBIN 14.6 g/dL (13.5-17.5); IMMATURE GRANULOCYTES 0.4 % (0-5); LYMPHOCYTES 12.9 % (15-50); MCH 25.9 pg (26.0-34.0); MCHC 32.2 g/dL (31.0-37.0); MCV 80.6 fL (80.0-100.0); MEAN PLATELET VOLUME 11.6 fL (7.4-10.4); MONOCYTES 3.4 % (2-11); NEUTROPHILS 83.2 % (40-80); PLATELET COUNT 215 10x3/uL (130-400); RBC 5.63 10x6/uL (4.20-6.10); RDW 17.6 % (11.5-14.5); WBC 11.8 10x3/uL (4.8-10.8)
[2016-11-17 08:43] LABS: ANION GAP 12.6 mmol/L (8-16); CALCIUM 9.1 mg/dL (8.5-10.1); CREATININE - SERUM 1.2 mg/dL (0.6-1.3); POTASSIUM - SERUM 4.6 mmol/L (3.5-5.1)
--- NOTE | 2016-11-17 11:20 | NUR ---
4L NC, NO RESP DISTRESS NOTED. LEFT GROIN 6F EXOSEAL CDI, NO BLEEDING OR HEMATOMA NOTED. NO C/O CHEST PAIN OR NAUSEA. VSS. INSTRUCTED PT TO KEEP HEAD FLAT ON PILLOW AND LEFT LEG STRAIGHT. FAMILY AT BEDSIDE. CALL LIGHT WITHIN REACH.
--- NOTE | 2016-11-17 11:50 | NUR ---
4L NC, NO RESP DISTRESS NOTED. LEFT GROIN 6F EXOSEAL CDI, NO BLEEDING OR HEMATOMA NOTED. NO C/O PAIN OR NAUSEA. SANDWICH TRAY GIVEN. FAMILY AT BEDSIDE, CALL LIGHT WITHIN REACH.
--- NOTE | 2016-11-17 12:05 | NUR ---
RESTING QUIETLY WITH EYES CLOSED. 4L NC, NO RESP DISTRESS. LEFT GROIN 6F EXOSEAL CDI, NO BLEEDING NOTED. DENIES ANY PAIN AT THIS TIME. WILL CONTINUE TO MONITOR.
--- NOTE | 2016-11-17 12:35 | NUR ---
RESTING QUIETLY WITH EYES CLOSED. LEFT GROIN 6F EXOSEAL CDI, NO BLEEDING OR HEMATOMA NOTED. 4L NC, NO RESP DISTRESS NOTED. DENIES ANY CHEST PAIN OR NAUSEA AT THIS TIME. WILL CONTINUE TO MONITOR.
--- NOTE | 2016-11-17 13:35 | NUR ---
4L NC, NO RESP DISTRESS NOTED. LEFT GROIN 6F EXOSEAL CDI, NO BLEEDING OR HEMATOMA NOTED. VSS. NO C/O CHEST PAIN OR NAUSEA. FAMILY AT BEDSIDE, CALL LIGHT WITHIN REACH.
--- NOTE | 2016-11-17 14:30 | NUR ---
HOB ELEVATED 30 DEGREES. NO BLEEDING NOTED TO LEFT GROIN 6F EXOSEAL.
--- NOTE | 2016-11-17 14:50 | NUR ---
LEFT WRIST PIV D/C'D WITH CATHETER INTACT, BAND AID TO SITE. UP TO BEDSIDE TO GET DRESSED.
--- NOTE | 2016-11-17 14:54 | NUR ---
DISCHARGE INSTRUCTIONS GIVEN, VERBALIZED UNDERSTANDING.
--- NOTE | 2016-11-17 15:02 | NUR ---
TAKEN OUT VIA WHEELCHAIR BY CATH FINANCE BUSINESS PARTNER. LEFT FACILITY WITH FAMILY MEMBER AND ALL PERSONAL BELONGINGS.
--- NOTE | 2016-11-19 13:52 | OP ---
PATIENT NAME: ERLIN CARDOZA MEDICAL RECORD: [id number] :37 LOCATION:D.CAT ADMISSION DATE: SURGEON: ALICE DEL VALLE MD DATE OF OPERATION: 11/17/2016 PROCEDURES: 1. Aortofemoral runoff. 2. Abdominal aortography. INDICATION: Claudication and peripheral vascular disease. PROCEDURE IN DETAIL: After informed consent was obtained and after detailed explanation of risks, benefits as well as alternative therapies, the patient elected to proceed with angiogram and angioplasty. The left femoral area was prepped and draped in normal sterile fashion. Left femoral artery was cannulated via modified Seldinger technique with placement of 6-Guyanese sheath. All catheters exchanged through this sheath. FINDINGS: The abdominal aortography was performed. The catheter was pulled down for aortofemoral runoff. Abdominal aortography reveals no significant abdominal aortic disease. No dissection or aneurysmal formation. No renal artery stenosis. RIGHT LEG: A. Iliac: The common internal and external iliacs have mild irregularities, but no flow-limiting stenosis. B. Femoral system: The common femoral has a previously placed stent, this is widely patent. C. Superficial femoral was totally occluded. After that, there is a patent femoral popliteal bypass graft that feeds into the distal SFA/proximal popliteal. This is widely patent. There is preserved 3-vessel runoff, although diffusely diseased to the foot. LEFT LEG: A. Iliac: The common internal and external iliacs have mild irregularities, but no flow-limiting stenosis. B. Femoral system: The common femoral has a previously placed stent, this is widely patent. C. Superficial femoral was totally occluded. After that, there is a patent femoral popliteal bypass graft that feeds into the distal SFA/proximal popliteal. This is widely patent. There is preserved 3-vessel runoff, although diffusely diseased to the foot. OVERALL IMPRESSION: Wide patency of bypass grafts bilaterally, that are femoropopliteal bypass grafts, otherwise only mild diffuse disease. Continue medical management of the peripheral vascular disease and peripheral risk factors. TRANSINT:[id number] Voice Confirmation ID: [id number] DOCUMENT ID: [id number] OPERATIVE REPORT [id number] ERLIN CARDOZA JEFFREY MD at 1356 CC: [id number] DICTATION DATE: 11/17/16 1106 ASSESSMENT ANALYST: 11/17/16 1310 DEP CLI 11/17/16 [facility] [address] [place] [id number]
--- NOTE | 2016-11-19 13:52 | OP ---
PATIENT NAME: ERLIN CARDOZA MEDICAL RECORD: [id number] :37 LOCATION:D.CAT ADMISSION DATE: SURGEON: ALICE DEL VALLE MD DATE OF OPERATION: 11/17/2016 PROCEDURE: 1. PTCA stent RCA. 2. Left heart catheterization. 3. Selective coronary angiography. 4. Left ventriculogram. INDICATIONS: Angina and coronary artery disease. PROCEDURE IN DETAIL: After informed consent was obtained, after detailed explanation of risks, benefits as well as alternative therapies, the patient elected to proceed with angiogram and angioplasty. The left femoral area was prepped and draped in normal sterile fashion. Left femoral artery was cannulated via modified Seldinger technique with placement of 6-Bermudian sheath. All catheters exchanged through this sheath. FINDINGS: The left ventriculogram was performed in standard 30-degree ALEJANDRO view, reveals good cardiac wall motion throughout all segments. Overall ejection fraction estimated at 60%. SELECTIVE CORONARY ANGIOGRAPHY: 1. Left main showed no significant angiographic disease. 2. Left anterior descending has mild irregularities, but no flow-limiting stenosis. Previously placed stents are widely patent. 3. Left circumflex has mild irregularities, but no flow-limiting stenosis. Previously placed stent is widely patent. 4. The right coronary has previously placed stents. There is 80% in-stent restenosis in the mid vessel. PTCA STENT OF THE RCA: The stent used is a 3.5 x 15 mm Brian. Result was 0% residual stenosis. OVERALL IMPRESSION: Successful percutaneous transluminal coronary angioplasty stent of the right coronary artery going from 80% initial stenosis to 0% residual. TRANSINT:[id number] Voice Confirmation ID: [id number] DOCUMENT ID: [id number] ALICE DEL VALLE MD at 1352 CC: [id number] DICTATION DATE: 11/17/16 1104 JUNIOR LEGAL SECRETARY: 11/17/16 1726 DEP CLI 11/17/16 [place] [address] [place] [address]
== END 2016-11-17 15:02 | disposition home or self-care (01) ==
LOC: D.CATH 07:43
PROVIDERS: Internal Medicine Interventional Cardiology
DX: I25.119 Atherosclerotic heart disease of native coronary artery with unspecified angina pectoris (principal); I10 Essential (primary) hypertension; E78.5 Hyperlipidemia, unspecified; Z01.812 Encounter for preprocedural laboratory examination
CPT/HCPCS: 93458; C9600

== ENCOUNTER 2017-03-05 10:37 | Inpatient (IN) | payer MEDICARE, OTHER ==
[~2017-03-05] VITALS: Ht 176.5 cm; Wt 127.7 kg
--- NOTE | ~2017-03-05 | PN ---
PATIENT:ERLIN CARDOZA MEDICAL RECORD: [id number] LOCATION:[facility] ADMISSION DATE: 03/05/17 PROGRESS NOTE DATE OF SERVICE: 03/13/2017 PROGRESS NOTE ADDENDUM CHIEF COMPLAINT: Better. The patient had tolerated clear liquids and we will advance him up to full liquids. He has had a bowel movement. He has passed flatus as well. His abdomen is nontender. Nothing aggravates. Nothing alleviates. This is a progress note addendum. For the typed portion of the progress note, please see the chart. This would include the past medical and surgical history, current medications, allergies, social history, as well as family history. REVIEW OF SYSTEMS: No nausea, no vomiting, no fever, no chills, no abdominal pain. Review of systems is negative other than as is described above. PHYSICAL EXAMINATION: GENERAL: The patient does not appear acutely ill. He does not appear chronically ill. VITAL SIGNS: Reviewed. HEENT: Ears; external ears appear normal. Eyes; extraocular movements are intact. NECK: Trachea is midline. CHEST: No intercostal retractions. PULMONARY: Nonlabored, no stridor. ABDOMEN: Nontender. EXTREMITIES: No peripheral cyanosis. INTEGUMENT: No rash. BACK: No thoracic kyphosis. LYMPHATIC: No lymphangitic streaking of the exposed extremities. IMPRESSION: Resolving ileus. PLAN: Advance up to a full liquid diet. TRANSINT:[id number] Voice Confirmation ID: [id number] DOCUMENT ID: [id number] MISTY BOO MD at 1327 CC: [id number] DICTATION DATE: 03/13/171715 INTERNAL CARVER: 03/13/172041 ADM IN [facility] [address] [place] [id number]
--- NOTE | ~2017-03-05 | OP ---
PATIENT NAME: ERLIN CARDOZA MEDICAL RECORD: [id number] :37 LOCATION:D.[facility] D.2310 ADMISSION DATE:03/05/17 SURGEON: KAMALA OROZCO MD DATE OF OPERATION: 03/31/2017 PREOPERATIVE DIAGNOSES: 1. End-stage renal disease. 2. Sepsis. 3. Peritonitis secondary to small bowel perforation. 4. Bacteremia. 5. Fungemia. 6. Fungal peritonitis. 7. Acute respiratory failure on the ventilator. POSTOPERATIVE DIAGNOSES: 1. End-stage renal disease. 2. Sepsis. 3. Peritonitis secondary to small bowel perforation. 4. Bacteremia. 5. Fungemia. 6. Fungal peritonitis. 7. Acute respiratory failure on the ventilator. PROCEDURE: 1. Right IJ 19 cm HemoSplit catheter placement. 2. Fluoroscopic interpretation. SURGEON: Kamala Orozco MD REPORT OF PROCEDURE: The patient's right chest and neck were prepped and draped in sterile fashion. A needle was used to cannulate the right internal jugular vein using ultrasound guidance. A wire was then advanced with ease. Fluoro was used to manipulate the wire until it rested in good position in the superior vena cava and right atrium. We then made an incision on the patient's right lateral chest and tunneled the catheter between this and the wire exit site. The dilator trocar device was then placed over the wire and the wire and dilator were removed. The catheter tips were advanced through the trocar and the trocar was removed. Under fluoroscopic guidance, we manipulated the catheter until the tips rested in good position at the right atrial superior vena caval junction. The catheter aspirated nonpulsatile dark blood and flushed easily with heparinized saline. This was sutured into place with 2-0 Prolenes and the skin incisions were closed with subcutaneous 5-0 Monocryl. COMPLICATIONS: None. CONDITION: Critical. ANESTHESIA: General endotracheal. BLOOD LOSS: 30 mL. TRANSINT:[id number] Voice Confirmation ID: [id number] DOCUMENT ID: [id number] OPERATIVE REPORT [id number] ERLIN CARDOZA CHRISTIAN MD at 0956 CC: [id number] DICTATION DATE: 03/31/17 1128 SHIPWRIGHT SUPERVISOR: 03/31/17 1313 DIS IN 04/02/17 [place] [id number] [place] [address]
--- NOTE | ~2017-03-05 | OP ---
PATIENT NAME: ERLIN CARDOZA MEDICAL RECORD: [id number] :36 LOCATION:[facility] D.2310 ADMISSION DATE:03/05/17 SURGEON: DAVIDSON BOO MD DATE OF OPERATION: 03/11/2017 PREOPERATIVE DIAGNOSIS: Acute renal failure requiring hemodialysis. POSTOPERATIVE DIAGNOSIS: Acute renal failure requiring hemodialysis. PROCEDURE: Insertion of right neck Trialysis catheter (non-tunneled, non-cuffed hemodialysis catheter). SURGEON: Davidson Boo MD BIOMATHEMATICIAN: None. BLOOD LOSS: Minimal. ANESTHESIA: Local. COMPLICATIONS: None. The risks, possible complications and alternatives to the procedure were explained. Consent form was signed. OPERATIVE COURSE: The patient was seen in his ICU room. He was positioned in the Trendelenburg position. The right neck was sterilely prepped and draped. A local anesthetic was used to infiltrate the skin and subcutaneous tissues at the base of the right neck. The right internal jugular vein was percutaneously accessed in an antegrade fashion easily. The guidewire would not thread very far, however. The internal jugular approach was abandoned. In the right supraclavicular fossa, a local anesthetic was used to infiltrate the skin and subcutaneous tissues. I percutaneously accessed the right subclavian vein utilizing a supraclavicular subclavian approach in an antegrade fashion. The guidewire passed easily. A small skin dean was accomplished. A vessel dilator was used to dilate the subcutaneous tract. A short Trialysis catheter was inserted to the hub. It was sutured in place times 3. All lumens flushed easily and aspirated dark, nonpulsatile blood. A stat portable chest x-ray is pending. TRANSINT:[id number] Voice Confirmation ID: [id number] DOCUMENT ID: [id number] DAVIDSON BOO MD at 1327 CC: [id number] DICTATION DATE: 03/11/17 1359 HOME HEALTH NURSE: 03/11/17 1450 ADM IN [place] [id number] [place] [address]
--- NOTE | ~2017-03-05 | CN ---
PATIENT NAME:ERLIN CARDOZA MEDICAL RECORD: [id number] : 36 LOCATION:[id number] ADMIT DATE: 03/05/17 ACCOUNT: [id number] CONSULTING PHYSICIAN: GUS ARCHER MD REFERRING PHYSICIAN: BELL MARTÍNEZ MD DATE OF CONSULTATION: 03/22/2017 HISTORY OF PRESENT ILLNESS: An 81-year-old gentleman with a history of coronary artery disease, status post intervention. He has a history of hypertension, diabetes mellitus, admitted with ileus, respiratory insufficiency, currently intubated with acute renal insufficiency as well as volume overload, pibpz-jt-mqnrajo renal insufficiency, noted to be in AFib. We are asked to see him concerning his cardiovascular status. PAST MEDICAL HISTORY: Includes: 1. History of hypertension. 2. Hyperlipidemia. 3. Diabetes mellitus. 4. Coronary artery disease as described above. ALLERGIES: IODINE. MEDICATIONS AT HOME INCLUDE: 1. Plavix 75 every day. 2. Coreg 6.25 b.i.d. 3. Lisinopril 20 every day. 4. Simvastatin 40 every day. 5. Metoprolol 50 every day. 6. Trazodone 100 q.h.s. 7. Lasix 20 every day. 8. Insulin per scale. 9. Metformin 500 b.i.d. SOCIAL HISTORY: Unobtainable. REVIEW OF SYSTEMS: Unobtainable. PHYSICAL EXAMINATION: GENERAL: Intubated and sedated. VITAL SIGNS: Blood pressure 127/62, pulse 130, frequent extrasystoles. HEENT: Normocephalic, atraumatic. NECK: No JVD or bruit. HEART: Regular, frequent extrasystoles. II/ systolic ejection murmur. LUNGS: Clear air excursion with diminished breath sounds. ABDOMEN: Somewhat quiet, nontender. EXTREMITIES: Pulses are actually palpable, 1+. No edema. IMPRESSION: Atrial fibrillation, multifactorial, increased catacholmine drive due to current illness, etc., is maintaining sinus with frequent PACs on telemetry on Cordarone. We will continue Cordarone drip as obviously this gentleman is sick. TRANSINT:[id number] Voice Confirmation ID: [id number] DOCUMENT ID: [id number] CONSULT REPORT [id number] SONYERLINGUS PARRISH MD at 1318 CC: [id number] DICTATION DATE: 03/22/17 0850 LACQUER POLISHER: 03/22/17 1022 ADM IN [facility] [address] [id number]
--- NOTE | ~2017-03-05 | OP ---
PATIENT NAME: ERLIN CARDOZA MEDICAL RECORD: [id number] :36 LOCATION:[facility] D.2310 ADMISSION DATE:03/05/17 SURGEON: JEANNIE GALARZA MD DATE OF OPERATION: 03/19/2017 SURGEON: Jeannie Galarza MD PREOPERATIVE DIAGNOSIS: Peritonitis. POSTOPERATIVE DIAGNOSES: Peritonitis, perforated viscus, sepsis, and lactic acidosis. PROCEDURE PERFORMED: 1. Exploratory laparotomy. 2. Small bowel resection. 3. Abdominal washout with drain placement. 4. Left subclavian central venous line. 5. Ultrasound-guided left radial arterial line placement. COMPLICATIONS: None. SPECIMENS: 1. Small bowel. 2. Anaerobic and aerobic cultures. 3. Fluid culture. ESTIMATED BLOOD LOSS: 30 cc. Wound class grossly contaminated. OPERATIVE COURSE: After consent was obtained, the patient was taken to the operating room and placed in supine position on the operating table. A timeout was taken to confirm the correct patient and procedure. The left wrist was prepped and draped in typical sterile fashion. Ultrasound was used to identify the left radial artery. The left radial artery was cannulated with an Angiocath under direct ultrasound guidance, the needle was removed. The angiocatheter was placed, line was flushed and connected to a pressure bag. It was sutured in place with 2-0 nylon suture and sterile Tegaderm dressing. Next, the left chest was prepped and draped in typical sterile fashion. Local anesthetic was administered. The left subclavian vein was cannulated on the first pass and guidewire was placed through the needle. The needle was removed. The tract was dilated over the wire in a standard Seldinger fashion. The catheter was then passed with the wire in standard Seldinger fashion. Catheter was secured to the skin with 2-0 nylon suture, Biopatch, and sterile Tegaderm dressing. All 3 ports were aspirated and flushed. At this time, the abdomen was prepped and draped in typical sterile fashion and Ioban dressing was placed. A midline abdominal incision was made with a 15 blade scalpel. Dissection continued to the level to the fascia using electrocautery. The fascia was incised using electrocautery and the peritoneum was grasped and incised with Metzenbaum scissors. The remaining portion of the fascia was then opened under direct vision using electrocautery. Yung retractor was placed approximately 1500 cc of feculent ascites was suctioned from the abdomen in all 4 quadrants, the small bowel was then extracorporealized, the greater omentum was used to retract the transverse colon cephalad. Small bowel was run from the ligament of Treitz to the terminal ileum. A small bowel perforation was identified in the distal OPERATIVE REPORT [id number] SONYERLIN Bakari jejunum. At this time, a wwwh-rg-arcg anastomosis was performed using the linear cutting GI stapler. The common enterotomy was closed with linear cutting stapler. The mesentery was taken with the Harmonic scalpel and the specimen was sent for permanent pathology. The mesenteric defect was closed using 3-0 Vicryl suture. The staple line was imbricated using 3-0 Vicryl suture. The abdomen was then irrigated with 6-1/2 liters of warm normal saline and into all 4 quadrants. A QUINCY drain was placed in the left lower quadrant and laid along the left pericolic gutter. Second QUINCY drain was placed in the right lower quadrant and placed in the pelvis. Next, the NG tube was confirmed to be in the stomach by manual palpation, the area in question on the EGD, the cardia of the stomach was meticulously examined. There were no signs of necrosis or ischemia on the anterior and posterior portions of the stomach, the first portion of duodenum appeared within normal limits, gallbladder appeared within normal limits with the transverse colon and retracted cephalad, the small bowel was run in 2 additional times from the ligament of Treitz to the ileocecal valve. No further signs of bowel injury. The colon was run from the cecum to the rectum. There was no evidence of colonic injury. At this time, the fascia was closed using a #1 looped PDS. Skin was closed with arnaldo. QUINCY drains were secured to the skin using 2-0 nylon suture and placed to bulb suction. At the end of the case, all needle and instrument counts were correct. No complications occurred. The patient was transferred to the ICU in critical condition, intubated. TRANSINT:[id number] Voice Confirmation ID: [id number] DOCUMENT ID: [id number] JEANNIE GALARZA MD at 0116 CC: [id number] DICTATION DATE: 03/19/171832 PAI GOW MANAGER: 03/19/171923 ADM IN [facility] [address] [id number]
--- NOTE | ~2017-03-05 | EC ---
PATIENT:ERLIN CARDOZA DATE OF SERVICE: 03/05/17 SEX: M MEDICAL RECORD: [id number] DATE OF : 37 LOCATION:[place] [address] AGE OF PATIENT: 81 ADMISSION DATE: 03/05/17 REFERRING PHYSICIAN: INTERPRETING PHYSICIAN: SUBHASH IRWIN MD ECHOCARDIOGRAM REPORT ECHO CHARGES 4 ECHO COMPLETE CLINICAL DIAGNOSIS: CHF ECHOCARDIOGRAPHIC MEASUREMENTS (adult normal given) AC root (d.<3.7cm) 3.4 cm LV Septum d (<1.2 cm> 1.3 cm Valve Excursion 1.6 cm LV Septum (systole) 1.5 cm Left Atria (s.<4.0cm> 3.5 cm LVPW d(<1.2cm) 1.2 cm RV (d.<2.3cm) 5.0 cm LVPW (sytole) 1.5 cm LV diastole(<5.6CM) 5.3 cm MV E-F(>70mm/sec) cm LV systole 3.6 cm LVOT Diameter 1.5 cm MV exc.(>10mm) cm Est.ejection fraction (50-75%) % Pericardial Effusion N DOPPLER: LVIT cm/sec A 99.0 cm/sec E 65.0 cm/sec LA cm/sec RVSP 29 mmHg LVOT 116 cm/sec AOP1/2T m/s Asc. Ao 153 cm/sec RVOT 103 cm/sec RA cm/sec PA 130 cm/sec AV Gradient Peak 9.31 mmHg AV Mean 4.75 mmHg AV Area 1.6 cm MV Gradient Peak 5.52 mmHg MV Mean 1.52 mmHg MV Area cm COMMENTS: Licensing Engineer: 2 ALLEGRA ROMAN Utility Helicopter Repairer: 4 Dr. Irwin TAPE# PACS DATE OF SERVICE: 03/08/2017 TRANSTHORACIC ECHOCARDIOGRAM FINDINGS: 1. It is very difficult to visualize echo. It is more qualitative than quantitative. Overall, it appears that the patient's function is mildly reduced with ejection fraction of 45% to 50%. 2. The right ventricle is severely dilated. 3. The right atrium is mildly dilated. ECHOCARDIOGRAM REPORT [id number] ERLIN CARDOZA 4. The aortic valve is grossly normal. 5. The mitral valve is grossly normal. 6. Tricuspid valve is grossly normal with an RVSP that was difficult to gauge. We did not get good envelopes on the tricuspid regurgitation indicative of an accurate RVSP. CONCLUSIONS: The patient has dilated right-sided chambers and we would expect that the patient may have elevated right-sided pressures, although we did not see that. The echocardiogram was difficult to obtain because of the patient's clinical status, but grossly the patient's LV function appears to be near normal to mildly depressed. TRANSINT:[id number] Voice Confirmation ID: [id number] DOCUMENT ID: [id number] 03/17/2007 Edited to correct date of service, dm. SUBHASH IRWIN MD at 1118 CC: [id number] DICTATION DATE: 03/10/17 0747 ROLLER REPAIRER: 03/10/17 100[address] [facility] [address] [id number] [place] [address]
--- NOTE | ~2017-03-05 | PN ---
PATIENT:ERLIN CARDOZA MEDICAL RECORD: [id number] LOCATION:[facility] D.231 ADMISSION DATE: 03/05/17 PROGRESS NOTE DATE OF SERVICE: 03/12/2017 PROGRESS NOTE ADDENDUM CHIEF COMPLAINT: None. The patient has a resolving ileus. He has had 2 bowel movements today. He is tolerating clear liquid diet. His abdomen is nontender. Nothing aggravates. Nothing alleviates. He is unable to characterize his symptoms. He underwent hemodialysis today. This is a progress note addendum. For the typed portion of the progress note, please see the chart. This would include the past medical and surgical history, allergies, social history, family history as well as current medications. REVIEW OF SYSTEMS: Due to confusion, he is unable to provide me an adequate review of systems. PHYSICAL EXAMINATION: GENERAL: He does appear acutely ill, also appears chronically ill. VITAL SIGNS: Reviewed. HEAD: Ears; external ears appear normal. Eyes; extraocular movements are intact. NECK: Trachea is midline. CHEST: No intercostal retractions. PULMONARY: Mildly labored. No stridor. ABDOMEN: Nontender. EXTREMITIES: No peripheral cyanosis. INTEGUMENT: No rash. PSYCHIATRIC: Abnormal. He has a flat affect. BACK: No thoracic kyphosis. LYMPHATIC: No lymphangitic streaking of the exposed extremities. IMPRESSION: Resolving ileus. PLAN: We will keep him on clear liquid diet for now and see how he continues to tolerate it. TRANSINT:[id number] Voice Confirmation ID: [id number] DOCUMENT ID: [id number] PROGRESS NOTE [id number] ERLIN CARDOZA ROBERT MD at 1327 CC: [id number] DICTATION DATE: 03/12/172027 FREEZER MACHINE OPERATOR: 03/13/17 0127 ADM IN [place] [id number] [place] [address]
[~2017-03-05 10:37] MED LIST changes: +METOPROLOL TART50 MG PO
[2017-03-05 11:17] LABS: BASOPHILS 0.2 % (0-2); EOSINOPHILS 0.1 % (0-7); HEMATOCRIT 49.8 % (42.0-54.0); IMMATURE GRANULOCYTES 0.4 % (0-5); LYMPHOCYTES 12.3 % (15-50); MCH 28.5 pg (26.0-34.0); MCHC 32.1 g/dL (31.0-37.0); MCV 88.6 fL (80.0-100.0); MONOCYTES 14.3 % (2-11); NEUTROPHILS 72.7 % (40-80); PLATELET COUNT 181 10x3/uL (130-400); RBC 5.62 10x6/uL (4.20-6.10); RDW 16.4 % (11.5-14.5); WBC 12.2 10x3/uL (4.8-10.8)
[2017-03-05 11:34] LABS: ALBUMIN 2.7 g/dL (3.4-5.0); ANION GAP 11.8 mmol/L (8-16); BILIRUBIN - TOTAL 0.44 mg/dL (0.2-1.3); CALCIUM 9.7 mg/dL (8.5-10.1); CARBON DIOXIDE 28.6 mmol/L (21.0-32.0); CREATININE - SERUM 1.6 mg/dL (0.6-1.3); POTASSIUM - SERUM 4.4 mmol/L (3.5-5.1); PROTEIN - SERUM 7.4 g/dL (6.4-8.2)
[2017-03-05] MEDS ORDERED: GLUCOPHAGE500 MG PO (15:31)
[2017-03-05] MEDS ORDERED: TOPROL XL50 MG PO (15:35)
[2017-03-05] MEDS ORDERED: QUINIDINE GLUC324 MG (15:39)
[2017-03-05] MEDS ORDERED: CHLOR-TRIMETON4 MG PO (15:42)
[2017-03-05] MEDS ORDERED: NITROQUICK0.4 MG SL (15:43)
[2017-03-05 16:52] VITALS: BP 129/75; BMI 29.1
[2017-03-05 21:08] VITALS: BP 167/71
[2017-03-06] VITALS (12 sets, daily range): BP systolic 114–172; BP diastolic 50–85
[2017-03-06 02:01] LABS: APPEARANCE CLEAR (CLEAR); BILIRUBIN NEGATIVE (NEGATIVE); COLOR YELLOW (YELLOW); GLUCOSE 1000 mg/dL (NEGATIVE); KETONE SMALL mg/dL (NEGATIVE); NITRITE NEGATIVE (NEGATIVE); PROTEIN NEGATIVE (NEGATIVE); UROBILINOGEN NORMAL (NORMAL)
[2017-03-06 06:21] LABS: BASOPHILS 0.2 % (0-2); EOSINOPHILS 0.3 % (0-7); HEMATOCRIT 46.2 % (42.0-54.0); HEMOGLOBIN 14.9 g/dL (13.5-17.5); IMMATURE GRANULOCYTES 0.7 % (0-5); LYMPHOCYTES 11.4 % (15-50); MCH 28.2 pg (26.0-34.0); MCHC 32.3 g/dL (31.0-37.0); MCV 87.5 fL (80.0-100.0); MEAN PLATELET VOLUME 12.5 fL (7.4-10.4); NEUTROPHILS 71.4 % (40-80); PLATELET COUNT 161 10x3/uL (130-400); RBC 5.28 10x6/uL (4.20-6.10); RDW 16.3 % (11.5-14.5); WBC 11.5 10x3/uL (4.8-10.8)
[2017-03-06 07:12] LABS: ALBUMIN 2.2 g/dL (3.4-5.0); ANION GAP 12.2 mmol/L (8-16); BILIRUBIN - TOTAL 0.4 mg/dL (0.2-1.3); CALCIUM 8.8 mg/dL (8.5-10.1); CARBON DIOXIDE 27.9 mmol/L (21.0-32.0); CREATININE - SERUM 1.1 mg/dL (0.6-1.3); POTASSIUM - SERUM 4.1 mmol/L (3.5-5.1); PROTEIN - SERUM 6.4 g/dL (6.4-8.2)
[2017-03-06 18:11] LABS: BASOPHILS 0.2 % (0-2); EOSINOPHILS 0.2 % (0-7); HEMATOCRIT 50.6 % (42.0-54.0); HEMOGLOBIN 15.8 g/dL (13.5-17.5); IMMATURE GRANULOCYTES 1.4 % (0-5); LYMPHOCYTES 11.7 % (15-50); MCH 27.6 pg (26.0-34.0); MCHC 31.2 g/dL (31.0-37.0); MCV 88.5 fL (80.0-100.0); MEAN PLATELET VOLUME 12.3 fL (7.4-10.4); MONOCYTES 12.5 % (2-11); PLATELET COUNT 162 10x3/uL (130-400); RBC 5.72 10x6/uL (4.20-6.10); RDW 16.4 % (11.5-14.5); WBC 12.1 10x3/uL (4.8-10.8)
[2017-03-06 18:58] LABS: ALBUMIN 2.2 g/dL (3.4-5.0); ANION GAP 11.1 mmol/L (8-16); BILIRUBIN - TOTAL 0.4 mg/dL (0.2-1.3); CALCIUM 8.9 mg/dL (8.5-10.1); POTASSIUM - SERUM 4.1 mmol/L (3.5-5.1); PROTEIN - SERUM 6.6 g/dL (6.4-8.2)
[2017-03-06 19:02] LABS: CREATININE - SERUM 1.8 mg/dL (0.6-1.3)
[2017-03-07] VITALS (24 sets, daily range): BP systolic 101–158; BP diastolic 48–73; Ht 176.5 cm; Wt 127.7 kg
[2017-03-07 05:21] LABS: BASOPHILS 0.3 % (0-2); EOSINOPHILS 0.1 % (0-7); HEMATOCRIT 46.1 % (42.0-54.0); HEMOGLOBIN 14.5 g/dL (13.5-17.5); MCH 27.8 pg (26.0-34.0); MCHC 31.5 g/dL (31.0-37.0); MCV 88.5 fL (80.0-100.0); MEAN PLATELET VOLUME 13.1 fL (7.4-10.4); MONOCYTES 11.5 % (2-11); NEUTROPHILS 77.1 % (40-80); PLATELET COUNT 160 10x3/uL (130-400); RBC 5.21 10x6/uL (4.20-6.10); RDW 16.5 % (11.5-14.5); WBC 14.6 10x3/uL (4.8-10.8)
[2017-03-07 05:45] LABS: ANION GAP 14.9 mmol/L (8-16); BILIRUBIN - TOTAL 0.6 mg/dL (0.2-1.3); CALCIUM 8.9 mg/dL (8.5-10.1); CARBON DIOXIDE 26.4 mmol/L (21.0-32.0); POTASSIUM - SERUM 4.3 mmol/L (3.5-5.1); PROTEIN - SERUM 6.3 g/dL (6.4-8.2)
[2017-03-07 05:50] LABS: CREATININE - SERUM 2.4 mg/dL (0.6-1.3)
[2017-03-08] VITALS (24 sets, daily range): BP systolic 88–147; BP diastolic 45–96
[2017-03-08 03:46] LABS: BASOPHILS 0.3 % (0-2); EOSINOPHILS 0.2 % (0-7); HEMATOCRIT 43.9 % (42.0-54.0); IMMATURE GRANULOCYTES 3.2 % (0-5); MCH 28.1 pg (26.0-34.0); MCHC 31.9 g/dL (31.0-37.0); MONOCYTES 11.2 % (2-11); NEUTROPHILS 76.1 % (40-80); PLATELET COUNT 174 10x3/uL (130-400); RBC 4.99 10x6/uL (4.20-6.10); RDW 16.7 % (11.5-14.5); WBC 17.5 10x3/uL (4.8-10.8)
[2017-03-08 04:30] LABS: ALBUMIN 1.8 g/dL (3.4-5.0); ANION GAP 15.1 mmol/L (8-16); BILIRUBIN - TOTAL 0.7 mg/dL (0.2-1.3); CALCIUM 8.7 mg/dL (8.5-10.1); CARBON DIOXIDE 24.9 mmol/L (21.0-32.0); MAGNESIUM - SERUM 2.3 mg/dL (1.8-2.4); PHOSPHOROUS 3.7 mg/dL (2.5-4.9); PROTEIN - SERUM 5.8 g/dL (6.4-8.2)
[2017-03-08 04:32] LABS: CREATININE - SERUM 3.5 mg/dL (0.6-1.3)
[2017-03-08 07:53] LABS: AMYLASE - SERUM 16 U/L (25-115); LIPASE 85 U/L (73-393)
[2017-03-09] VITALS (24 sets, daily range): BP systolic 90–140; BP diastolic 40–94
[2017-03-09 04:13] LABS: BASOPHILS 0.3 % (0-2); EOSINOPHILS 0.4 % (0-7); HEMATOCRIT 42.3 % (42.0-54.0); HEMOGLOBIN 13.3 g/dL (13.5-17.5); IMMATURE GRANULOCYTES 4.2 % (0-5); LYMPHOCYTES 7.9 % (15-50); MCH 27.4 pg (26.0-34.0); MCHC 31.4 g/dL (31.0-37.0); MCV 87.2 fL (80.0-100.0); MONOCYTES 11.7 % (2-11); NEUTROPHILS 75.5 % (40-80); PLATELET COUNT 191 10x3/uL (130-400); RBC 4.85 10x6/uL (4.20-6.10); RDW 16.9 % (11.5-14.5); WBC 14.8 10x3/uL (4.8-10.8)
[2017-03-09 04:33] LABS: ALBUMIN 1.6 g/dL (3.4-5.0); ANION GAP 17.8 mmol/L (8-16); BILIRUBIN - TOTAL 0.67 mg/dL (0.2-1.3); CALCIUM 8.1 mg/dL (8.5-10.1); CARBON DIOXIDE 22.8 mmol/L (21.0-32.0); CREATININE - SERUM 3.5 mg/dL (0.6-1.3); POTASSIUM - SERUM 3.6 mmol/L (3.5-5.1); PROTEIN - SERUM 5.5 g/dL (6.4-8.2)
[2017-03-09 09:16] LABS: IMMUNOGLOBULIN E 376 IU/mL (0-100)
[2017-03-10] VITALS (24 sets, daily range): BP systolic 79–127; BP diastolic 28–83
[2017-03-10 05:06] LABS: BASOPHILS 0.3 % (0-2); EOSINOPHILS 0.4 % (0-7); HEMATOCRIT 42.4 % (42.0-54.0); HEMOGLOBIN 13.4 g/dL (13.5-17.5); IMMATURE GRANULOCYTES 3.6 % (0-5); MCH 27.2 pg (26.0-34.0); MCHC 31.6 g/dL (31.0-37.0); MEAN PLATELET VOLUME 12.8 fL (7.4-10.4); MONOCYTES 11.2 % (2-11); NEUTROPHILS 74.5 % (40-80); PLATELET COUNT 197 10x3/uL (130-400); RBC 4.93 10x6/uL (4.20-6.10); RDW 17.2 % (11.5-14.5); WBC 14.3 10x3/uL (4.8-10.8)
[2017-03-10 05:22] LABS: ALBUMIN 1.6 g/dL (3.4-5.0); ANION GAP 14.8 mmol/L (8-16); BILIRUBIN - TOTAL 0.7 mg/dL (0.2-1.3); CALCIUM 8.2 mg/dL (8.5-10.1); CARBON DIOXIDE 22.5 mmol/L (21.0-32.0); PHOSPHOROUS 2.8 mg/dL (2.5-4.9); POTASSIUM - SERUM 3.3 mmol/L (3.5-5.1); PROTEIN - SERUM 5.4 g/dL (6.4-8.2)
[2017-03-10 05:35] LABS: CREATININE - SERUM 4.7 mg/dL (0.6-1.3)
[2017-03-11] VITALS (39 sets, daily range): BP systolic 80–151; BP diastolic 37–97
[2017-03-11 04:11] LABS: BASOPHILS 0.3 % (0-2); HEMATOCRIT 41.3 % (42.0-54.0); HEMOGLOBIN 13.4 g/dL (13.5-17.5); LYMPHOCYTES 9.5 % (15-50); MCH 27.8 pg (26.0-34.0); MCHC 32.4 g/dL (31.0-37.0); MCV 85.7 fL (80.0-100.0); MEAN PLATELET VOLUME 12.9 fL (7.4-10.4); MONOCYTES 7.2 % (2-11); PLATELET COUNT 174 10x3/uL (130-400); RBC 4.82 10x6/uL (4.20-6.10); RDW 17.1 % (11.5-14.5); WBC 13.1 10x3/uL (4.8-10.8)
[2017-03-11 04:14] LABS: ANION GAP 16.9 mmol/L (8-16); CALCIUM 7.7 mg/dL (8.5-10.1); CARBON DIOXIDE 22.5 mmol/L (21.0-32.0); MAGNESIUM - SERUM 2.6 mg/dL (1.8-2.4); PHOSPHOROUS 3.1 mg/dL (2.5-4.9); POTASSIUM - SERUM 3.4 mmol/L (3.5-5.1)
[2017-03-11 04:15] LABS: CREATININE - SERUM 6.3 mg/dL (0.6-1.3)
[2017-03-11 12:18] LABS: ALBUMIN 1.6 g/dL (3.4-5.0); BILIRUBIN - DIRECT 0.42 mg/dL (0.00-0.30); BILIRUBIN - INDIRECT 0.25 mg/dL (0.00-1.00); BILIRUBIN - TOTAL 0.67 mg/dL (0.2-1.3); PROTEIN - SERUM 4.5 g/dL (6.4-8.2)
[2017-03-12] VITALS (24 sets, daily range): BP systolic 89–135; BP diastolic 48–94
[2017-03-12 03:51] LABS: BASOPHILS 0.2 % (0-2); HEMATOCRIT 40.9 % (42.0-54.0); HEMOGLOBIN 13.5 g/dL (13.5-17.5); IMMATURE GRANULOCYTES 4.7 % (0-5); LYMPHOCYTES 7.8 % (15-50); MCH 27.6 pg (26.0-34.0); MEAN PLATELET VOLUME 12.3 fL (7.4-10.4); MONOCYTES 6.2 % (2-11); NEUTROPHILS 80.1 % (40-80); PLATELET COUNT 182 10x3/uL (130-400); WBC 11.1 10x3/uL (4.8-10.8)
[2017-03-12 03:54] LABS: MCV 83.5 fL (80.0-100.0)
[2017-03-12 03:59] LABS: PROTIME 22.1 SECONDS (11.6-15.0)
[2017-03-12 04:01] LABS: ANION GAP 12.2 mmol/L (8-16); CALCIUM 8.1 mg/dL (8.5-10.1); CREATININE - SERUM 4.8 mg/dL (0.6-1.3); PHOSPHOROUS 2.6 mg/dL (2.5-4.9); POTASSIUM - SERUM 3.8 mmol/L (3.5-5.1)
[2017-03-12 04:02] LABS: CARBON DIOXIDE 28.6 mmol/L (21.0-32.0)
[2017-03-13] VITALS (13 sets, daily range): BP systolic 104–157; BP diastolic 57–101
[2017-03-13 05:00] LABS: BASOPHILS 0.2 % (0-2); EOSINOPHILS 1.6 % (0-7); HEMATOCRIT 39.6 % (42.0-54.0); HEMOGLOBIN 12.9 g/dL (13.5-17.5); IMMATURE GRANULOCYTES 2.8 % (0-5); LYMPHOCYTES 10.6 % (15-50); MCHC 32.6 g/dL (31.0-37.0); MEAN PLATELET VOLUME 13.1 fL (7.4-10.4); MONOCYTES 6.5 % (2-11); NEUTROPHILS 78.3 % (40-80); PLATELET COUNT 192 10x3/uL (130-400); RBC 4.77 10x6/uL (4.20-6.10); WBC 9.6 10x3/uL (4.8-10.8)
[2017-03-13 05:22] LABS: ANION GAP 13.5 mmol/L (8-16); CALCIUM 8.2 mg/dL (8.5-10.1); CARBON DIOXIDE 25.7 mmol/L (21.0-32.0); CREATININE - SERUM 3.7 mg/dL (0.6-1.3); PHOSPHOROUS 2.1 mg/dL (2.5-4.9)
[2017-03-13 05:26] LABS: POTASSIUM - SERUM 3.2 mmol/L (3.5-5.1)
[2017-03-14 00:02] VITALS: BP 162/64
[2017-03-14 05:13] LABS: BASOPHILS 0.2 % (0-2); EOSINOPHILS 0.8 % (0-7); HEMATOCRIT 44.5 % (42.0-54.0); HEMOGLOBIN 14.5 g/dL (13.5-17.5); LYMPHOCYTES 8.9 % (15-50); MCH 27.5 pg (26.0-34.0); MCHC 32.6 g/dL (31.0-37.0); MCV 84.3 fL (80.0-100.0); MEAN PLATELET VOLUME 12.8 fL (7.4-10.4); MONOCYTES 5.1 % (2-11); PLATELET COUNT 214 10x3/uL (130-400); RBC 5.28 10x6/uL (4.20-6.10); RDW 16.8 % (11.5-14.5); WBC 11.8 10x3/uL (4.8-10.8)
[2017-03-14 05:49] LABS: ANION GAP 11.3 mmol/L (8-16); CALCIUM 8.3 mg/dL (8.5-10.1); POTASSIUM - SERUM 3.3 mmol/L (3.5-5.1)
[2017-03-14 05:53] LABS: CREATININE - SERUM 1.7 mg/dL (0.6-1.3)
[2017-03-14 05:54] VITALS: BP 170/66
[2017-03-14 08:49] VITALS: BP 138/62
[2017-03-14 12:34] VITALS: BP 122/69
[2017-03-14 16:46] VITALS: BP 151/65
[2017-03-14 20:00] VITALS: BP 124/63
[2017-03-15 05:52] VITALS: BP 192/63
[2017-03-15 06:04] LABS: BASOPHILS 0.3 % (0-2); EOSINOPHILS 0.7 % (0-7); HEMOGLOBIN 13.5 g/dL (13.5-17.5); IMMATURE GRANULOCYTES 2.1 % (0-5); LYMPHOCYTES 9.8 % (15-50); MCH 27.7 pg (26.0-34.0); MCHC 32.1 g/dL (31.0-37.0); MCV 86.2 fL (80.0-100.0); MEAN PLATELET VOLUME 11.9 fL (7.4-10.4); MONOCYTES 5.9 % (2-11); NEUTROPHILS 81.2 % (40-80); PLATELET COUNT 237 10x3/uL (130-400); RBC 4.87 10x6/uL (4.20-6.10); RDW 17.1 % (11.5-14.5); WBC 11.6 10x3/uL (4.8-10.8)
[2017-03-15 06:22] LABS: ANION GAP 9.1 mmol/L (8-16); CALCIUM 7.3 mg/dL (8.5-10.1); CARBON DIOXIDE 28.1 mmol/L (21.0-32.0); CREATININE - SERUM 1.3 mg/dL (0.6-1.3); MAGNESIUM - SERUM 1.4 mg/dL (1.8-2.4); PHOSPHOROUS 2.3 mg/dL (2.5-4.9); POTASSIUM - SERUM 3.2 mmol/L (3.5-5.1)
[2017-03-15 08:08] VITALS: BP 137/55
[2017-03-15 12:36] VITALS: BP 149/56
[2017-03-15 17:00] VITALS: BP 147/66
[2017-03-15 21:09] VITALS: BP 175/82
[2017-03-16] VITALS (12 sets, daily range): BP systolic 86–160; BP diastolic 40–73
[2017-03-16 03:08] LABS: OVA + PARASITE EXAM Final report (())
[2017-03-16 05:06] LABS: HEMATOCRIT 43.9 % (42.0-54.0); MCH 27.9 pg (26.0-34.0); MCHC 31.9 g/dL (31.0-37.0); MCV 87.6 fL (80.0-100.0); MEAN PLATELET VOLUME 12.2 fL (7.4-10.4); PLATELET COUNT 273 10x3/uL (130-400); RBC 5.01 10x6/uL (4.20-6.10); RDW 17.2 % (11.5-14.5); WBC 22.2 10x3/uL (4.8-10.8)
[2017-03-16 05:25] LABS: ALBUMIN 1.8 g/dL (3.4-5.0); ANION GAP 9.6 mmol/L (8-16); BILIRUBIN - TOTAL 0.65 mg/dL (0.2-1.3); CALCIUM 7.9 mg/dL (8.5-10.1); CARBON DIOXIDE 27.9 mmol/L (21.0-32.0); CREATININE - SERUM 1.3 mg/dL (0.6-1.3); PHOSPHOROUS 2.2 mg/dL (2.5-4.9); PROTEIN - SERUM 5.5 g/dL (6.4-8.2)
[2017-03-16 05:29] LABS: POTASSIUM - SERUM 4.5 mmol/L (3.5-5.1)
[2017-03-16 06:06] LABS: BASOPHILS 1 % (0-2); LYMPHOCYTES 3 % (15-50); MONOCYTES 2 % (2-11); NEUTROPHILS 86 % (40-80); PLATELET ESTIMATE NORMAL
[2017-03-16 10:26] LABS: APPEARANCE CLOUDY (CLEAR); BILIRUBIN NEGATIVE (NEGATIVE); COLOR DK YELLOW (YELLOW); GLUCOSE 100 mg/dL (NEGATIVE); KETONE NEGATIVE (NEGATIVE); NITRITE NEGATIVE (NEGATIVE); PROTEIN 1+ mg/dL (NEGATIVE); UROBILINOGEN NORMAL (NORMAL)
[2017-03-16 10:28] LABS: BACTERIA MODERATE /hpf (NONE SEEN); EPITHELIAL CELLS 0-5 /hpf (0-5); MUCUS >1+ /lpf (NONE SEEN)
[2017-03-16 11:13] LABS: HEPATITIS C ANTIBODY <0.1 (0.0-0.9)
[2017-03-17] VITALS (24 sets, daily range): BP systolic 102–133; BP diastolic 52–93
[2017-03-17 07:50] LABS: BASOPHILS 0.1 % (0-2); EOSINOPHILS 0.2 % (0-7); HEMATOCRIT 39.4 % (42.0-54.0); HEMOGLOBIN 12.3 g/dL (13.5-17.5); IMMATURE GRANULOCYTES 0.7 % (0-5); LYMPHOCYTES 6.2 % (15-50); MCH 27.6 pg (26.0-34.0); MCHC 31.2 g/dL (31.0-37.0); MCV 88.3 fL (80.0-100.0); MEAN PLATELET VOLUME 12.4 fL (7.4-10.4); MONOCYTES 4.5 % (2-11); NEUTROPHILS 88.3 % (40-80); PLATELET COUNT 293 10x3/uL (130-400); RBC 4.46 10x6/uL (4.20-6.10); RDW 17.7 % (11.5-14.5); WBC 25.5 10x3/uL (4.8-10.8)
[2017-03-17 08:01] LABS: ALBUMIN 1.6 g/dL (3.4-5.0); ANION GAP 7.5 mmol/L (8-16); BILIRUBIN - TOTAL 0.59 mg/dL (0.2-1.3); CALCIUM 8.1 mg/dL (8.5-10.1); CARBON DIOXIDE 28.9 mmol/L (21.0-32.0); CREATININE - SERUM 1.6 mg/dL (0.6-1.3); POTASSIUM - SERUM 4.4 mmol/L (3.5-5.1); PROTEIN - SERUM 5.5 g/dL (6.4-8.2)
[2017-03-18] VITALS (22 sets, daily range): BP systolic 106–158; BP diastolic 53–114
[2017-03-18 04:02] LABS: BASOPHILS 0.3 % (0-2); EOSINOPHILS 0.5 % (0-7); HEMATOCRIT 38.9 % (42.0-54.0); HEMOGLOBIN 11.9 g/dL (13.5-17.5); IMMATURE GRANULOCYTES 0.8 % (0-5); LYMPHOCYTES 6.8 % (15-50); MCH 26.9 pg (26.0-34.0); MCHC 30.6 g/dL (31.0-37.0); MEAN PLATELET VOLUME 12.8 fL (7.4-10.4); MONOCYTES 5.4 % (2-11); NEUTROPHILS 86.2 % (40-80); PLATELET COUNT 301 10x3/uL (130-400); RBC 4.42 10x6/uL (4.20-6.10); RDW 17.7 % (11.5-14.5); WBC 15.7 10x3/uL (4.8-10.8)
[2017-03-18 04:29] LABS: ALBUMIN 1.5 g/dL (3.4-5.0); ANION GAP 9.6 mmol/L (8-16); BILIRUBIN - TOTAL 0.43 mg/dL (0.2-1.3); CALCIUM 7.8 mg/dL (8.5-10.1); CARBON DIOXIDE 27.2 mmol/L (21.0-32.0); CREATININE - SERUM 1.3 mg/dL (0.6-1.3); POTASSIUM - SERUM 3.8 mmol/L (3.5-5.1); PROTEIN - SERUM 5.4 g/dL (6.4-8.2)
[2017-03-19] VITALS (48 sets, daily range): BP systolic 88–144; BP diastolic 22–118
[2017-03-19 04:21] LABS: HEMATOCRIT 43.5 % (42.0-54.0); HEMOGLOBIN 13.4 g/dL (13.5-17.5); LYMPHOCYTES 4.9 % (15-50); MCH 26.9 pg (26.0-34.0); MCHC 30.8 g/dL (31.0-37.0); MCV 87.3 fL (80.0-100.0); MEAN PLATELET VOLUME 13.6 fL (7.4-10.4); NEUTROPHILS 88.5 % (40-80); PLATELET COUNT 339 10x3/uL (130-400); RBC 4.98 10x6/uL (4.20-6.10); RDW 17.8 % (11.5-14.5); WBC 9.9 10x3/uL (4.8-10.8)
[2017-03-19 04:32] LABS: ALBUMIN 1.6 g/dL (3.4-5.0); BILIRUBIN - DIRECT 0.54 mg/dL (0.00-0.30); BILIRUBIN - INDIRECT 0.36 mg/dL (0.00-1.00); BILIRUBIN - TOTAL 0.9 mg/dL (0.2-1.3); CALCIUM 7.6 mg/dL (8.5-10.1); CARBON DIOXIDE 21.9 mmol/L (21.0-32.0); POTASSIUM - SERUM 3.7 mmol/L (3.5-5.1); PROTEIN - SERUM 5.1 g/dL (6.4-8.2)
[2017-03-19 04:33] LABS: CREATININE - SERUM 1.7 mg/dL (0.6-1.3)
[2017-03-19 04:34] LABS: ANION GAP 13.8 mmol/L (8-16)
[2017-03-19 12:01] LABS: APPEARANCE CLOUDY (CLEAR); BILIRUBIN NEGATIVE (NEGATIVE); COLOR DK YELLOW (YELLOW); GLUCOSE 100 mg/dL (NEGATIVE); KETONE NEGATIVE (NEGATIVE); NITRITE NEGATIVE (NEGATIVE); PROTEIN 2+ mg/dL (NEGATIVE); UROBILINOGEN NORMAL (NORMAL)
[2017-03-19 12:02] LABS: AMORPHOUS SEDIMENT >1+ /lpf (NONE SEEN); BACTERIA MODERATE /hpf (NONE SEEN); EPITHELIAL CELLS 0-5 /hpf (0-5); GRANULAR CAST 0-5 /lpf (NONE SEEN); RED CELLS - URINE 0-5 /hpf (0-5); WHITE CELLS - URINE 0-5 /hpf (0-5); YEAST <1+ /hpf (NONE SEEN)
[2017-03-19 18:50] LABS: HEMATOCRIT 37.1 % (42.0-54.0); HEMOGLOBIN 11.3 g/dL (13.5-17.5); MCH 27.4 pg (26.0-34.0); MCHC 30.5 g/dL (31.0-37.0); MEAN PLATELET VOLUME 13.4 fL (7.4-10.4); PLATELET COUNT 319 10x3/uL (130-400); RBC 4.12 10x6/uL (4.20-6.10); RDW 18.7 % (11.5-14.5)
[2017-03-19 19:27] LABS: CARBON DIOXIDE 23.3 mmol/L (21.0-32.0)
[2017-03-19 19:28] LABS: WBC 12.8 10x3/uL (4.8-10.8)
[2017-03-19 19:31] LABS: ANION GAP 14.1 mmol/L (8-16); CREATININE - SERUM 2.3 mg/dL (0.6-1.3); POTASSIUM - SERUM 4.4 mmol/L (3.5-5.1)
[2017-03-19 19:32] LABS: CALCIUM 6.5 mg/dL (8.5-10.1)
[2017-03-19 19:38] LABS: ALBUMIN 1.4 g/dL (3.4-5.0)
[2017-03-19 20:26] LABS: LYMPHOCYTES 16 % (15-50); MONOCYTES 2 % (2-11); NEUTROPHILS 78 % (40-80); PLATELET ESTIMATE INCREASED; POIKILOCYTOSIS 1+
[2017-03-19 20:28] LABS: ROULEAUX OCC
[2017-03-19 20:29] LABS: BURR CELLS OCC
[2017-03-20] VITALS (64 sets, daily range): BP systolic 78–123; BP diastolic 24–77
[2017-03-20 05:20] LABS: HEMATOCRIT 31.5 % (42.0-54.0); HEMOGLOBIN 9.8 g/dL (13.5-17.5); LYMPHOCYTES 7.5 % (15-50); MCH 27.6 pg (26.0-34.0); MCHC 31.1 g/dL (31.0-37.0); MCV 88.7 fL (80.0-100.0); MEAN PLATELET VOLUME 13.7 fL (7.4-10.4); NEUTROPHILS 88.8 % (40-80); RBC 3.55 10x6/uL (4.20-6.10); RDW 18.3 % (11.5-14.5); WBC 12.4 10x3/uL (4.8-10.8)
[2017-03-20 05:22] LABS: PLATELET COUNT 236 10x3/uL (130-400)
[2017-03-20 05:41] LABS: ALBUMIN 1.2 g/dL (3.4-5.0); ANION GAP 14.3 mmol/L (8-16); BILIRUBIN - TOTAL 1.2 mg/dL (0.2-1.3); CALCIUM 7.2 mg/dL (8.5-10.1); CARBON DIOXIDE 22.5 mmol/L (21.0-32.0); CREATININE - SERUM 2.8 mg/dL (0.6-1.3); MAGNESIUM - SERUM 1.3 mg/dL (1.8-2.4); PHOSPHOROUS 2.6 mg/dL (2.5-4.9); POTASSIUM - SERUM 3.8 mmol/L (3.5-5.1); PROTEIN - SERUM 3.9 g/dL (6.4-8.2); TROPONIN-I 0.031 ng/mL (0.000-0.060)
[2017-03-20 05:55] LABS: INR 4.57 (0.85-1.17); PROTIME 42.4 SECONDS (11.6-15.0)
[2017-03-21] VITALS (74 sets, daily range): BP systolic 72–124; BP diastolic 34–133
[2017-03-21 04:48] LABS: BASOPHILS 0.3 % (0-2); EOSINOPHILS 0.2 % (0-7); HEMATOCRIT 32.9 % (42.0-54.0); HEMOGLOBIN 10.1 g/dL (13.5-17.5); IMMATURE GRANULOCYTES 1.7 % (0-5); LYMPHOCYTES 9.4 % (15-50); MCH 27.2 pg (26.0-34.0); MCHC 30.7 g/dL (31.0-37.0); MCV 88.7 fL (80.0-100.0); MONOCYTES 4.3 % (2-11); NEUTROPHILS 84.1 % (40-80); PLATELET COUNT 236 10x3/uL (130-400); RBC 3.71 10x6/uL (4.20-6.10); RDW 19.1 % (11.5-14.5); WBC 10.6 10x3/uL (4.8-10.8)
[2017-03-21 05:08] LABS: ALBUMIN 1.2 g/dL (3.4-5.0); ANION GAP 11.5 mmol/L (8-16); CARBON DIOXIDE 26.8 mmol/L (21.0-32.0); MAGNESIUM - SERUM 1.2 mg/dL (1.8-2.4); PHOSPHOROUS 1.9 mg/dL (2.5-4.9); POTASSIUM - SERUM 3.3 mmol/L (3.5-5.1); VANCOMYCIN - TROUGH 21.6 ug/mL (10.0-20.0)
[2017-03-21 05:09] LABS: CALCIUM 6.6 mg/dL (8.5-10.1)
[2017-03-22] VITALS (95 sets, daily range): BP systolic 70–160; BP diastolic 30–154
[2017-03-22 04:27] LABS: BASOPHILS 0.2 % (0-2); EOSINOPHILS 0.6 % (0-7); HEMATOCRIT 34.9 % (42.0-54.0); HEMOGLOBIN 10.9 g/dL (13.5-17.5); IMMATURE GRANULOCYTES 0.5 % (0-5); LYMPHOCYTES 9.8 % (15-50); MCH 27.3 pg (26.0-34.0); MCHC 31.2 g/dL (31.0-37.0); MCV 87.3 fL (80.0-100.0); MONOCYTES 4.5 % (2-11); NEUTROPHILS 84.4 % (40-80); PLATELET COUNT 256 10x3/uL (130-400); RDW 19.3 % (11.5-14.5)
[2017-03-22 04:28] LABS: WBC 14.4 10x3/uL (4.8-10.8)
[2017-03-22 04:42] LABS: ALBUMIN 1.5 g/dL (3.4-5.0); ANION GAP 11.9 mmol/L (8-16); BILIRUBIN - TOTAL 3.11 mg/dL (0.2-1.3); CARBON DIOXIDE 29.5 mmol/L (21.0-32.0); CREATININE - SERUM 4.8 mg/dL (0.6-1.3); MAGNESIUM - SERUM 1.2 mg/dL (1.8-2.4); PHOSPHOROUS 2.2 mg/dL (2.5-4.9); POTASSIUM - SERUM 3.4 mmol/L (3.5-5.1); PROTEIN - SERUM 4.2 g/dL (6.4-8.2)
[2017-03-22 05:07] LABS: CALCIUM 6.3 mg/dL (8.5-10.1)
[2017-03-22 05:41] LABS: PROTIME 59.3 SECONDS (11.6-15.0)
[2017-03-23] VITALS (95 sets, daily range): BP systolic 65–149; BP diastolic 40–90
[2017-03-23 06:14] LABS: BASOPHILS 0.2 % (0-2); EOSINOPHILS 0.7 % (0-7); HEMATOCRIT 34.1 % (42.0-54.0); HEMOGLOBIN 10.7 g/dL (13.5-17.5); IMMATURE GRANULOCYTES 0.7 % (0-5); LYMPHOCYTES 6.4 % (15-50); MCH 26.8 pg (26.0-34.0); MCHC 31.4 g/dL (31.0-37.0); MONOCYTES 4.5 % (2-11); NEUTROPHILS 87.5 % (40-80); WBC 13.6 10x3/uL (4.8-10.8)
[2017-03-23 06:15] LABS: MCV 85.3 fL (80.0-100.0); PLATELET COUNT 198 10x3/uL (130-400)
[2017-03-23 06:32] LABS: INR 2.11 (0.85-1.17)
[2017-03-23 06:44] LABS: ALBUMIN 1.8 g/dL (3.4-5.0); ANION GAP 13.6 mmol/L (8-16); BILIRUBIN - TOTAL 3.27 mg/dL (0.2-1.3); CARBON DIOXIDE 27.9 mmol/L (21.0-32.0); CREATININE - SERUM 3.8 mg/dL (0.6-1.3); PHOSPHOROUS 2.4 mg/dL (2.5-4.9); POTASSIUM - SERUM 3.5 mmol/L (3.5-5.1); PROTEIN - SERUM 4.3 g/dL (6.4-8.2); VANCOMYCIN - RANDOM 13.7 ug/mL (10.0-20.0)
[2017-03-23 06:47] LABS: MAGNESIUM - SERUM 1.6 mg/dL (1.8-2.4)
[2017-03-23 06:49] LABS: CALCIUM 6.5 mg/dL (8.5-10.1)
[2017-03-24] VITALS (72 sets, daily range): BP systolic 86–138; BP diastolic 38–77
[2017-03-24 04:36] LABS: APTT 45.5 SECONDS (22.8-39.4); PROTIME 18.7 SECONDS (11.6-15.0)
[2017-03-24 04:38] LABS: INR 1.62 (0.85-1.17)
[2017-03-24 04:39] LABS: BASOPHILS 0.3 % (0-2); EOSINOPHILS 0.2 % (0-7); HEMATOCRIT 30.1 % (42.0-54.0); HEMOGLOBIN 9.6 g/dL (13.5-17.5); IMMATURE GRANULOCYTES 1.7 % (0-5); LYMPHOCYTES 10.5 % (15-50); MCH 26.6 pg (26.0-34.0); MCHC 31.9 g/dL (31.0-37.0); MCV 83.4 fL (80.0-100.0); MONOCYTES 5.7 % (2-11); NEUTROPHILS 81.6 % (40-80); PLATELET COUNT 177 10x3/uL (130-400); RBC 3.61 10x6/uL (4.20-6.10); RDW 18.5 % (11.5-14.5); WBC 11.4 10x3/uL (4.8-10.8)
[2017-03-24 04:57] LABS: ALBUMIN 1.8 g/dL (3.4-5.0); ANION GAP 11.3 mmol/L (8-16); BILIRUBIN - TOTAL 4.5 mg/dL (0.2-1.3); CARBON DIOXIDE 28.4 mmol/L (21.0-32.0); CREATININE - SERUM 3.4 mg/dL (0.6-1.3); MAGNESIUM - SERUM 1.4 mg/dL (1.8-2.4); PHOSPHOROUS 1.8 mg/dL (2.5-4.9); POTASSIUM - SERUM 3.7 mmol/L (3.5-5.1); PROTEIN - SERUM 3.7 g/dL (6.4-8.2); VANCOMYCIN - RANDOM 20.8 ug/mL (10.0-20.0)
[2017-03-25] VITALS (93 sets, daily range): BP systolic 87–126; BP diastolic 35–53
[2017-03-25 06:10] LABS: HEMATOCRIT 25.7 % (42.0-54.0); HEMOGLOBIN 8.4 g/dL (13.5-17.5); LYMPHOCYTES 8.6 % (15-50); MCH 27.6 pg (26.0-34.0); MCHC 32.7 g/dL (31.0-37.0); MCV 84.5 fL (80.0-100.0); NEUTROPHILS 88.8 % (40-80); RBC 3.04 10x6/uL (4.20-6.10); RDW 19.4 % (11.5-14.5)
[2017-03-25 06:12] LABS: PLATELET COUNT 106 10x3/uL (130-400)
[2017-03-25 06:22] LABS: APTT 47.5 SECONDS (22.8-39.4); INR 1.49 (0.85-1.17); PROTIME 17.5 SECONDS (11.6-15.0)
[2017-03-25 07:12] LABS: ALBUMIN 1.7 g/dL (3.4-5.0); ANION GAP 11.9 mmol/L (8-16); BILIRUBIN - TOTAL 4.86 mg/dL (0.2-1.3); CARBON DIOXIDE 26.5 mmol/L (21.0-32.0); CREATININE - SERUM 3.4 mg/dL (0.6-1.3); POTASSIUM - SERUM 3.4 mmol/L (3.5-5.1); VANCOMYCIN - RANDOM 16.2 ug/mL (10.0-20.0)
[2017-03-25 07:13] LABS: MAGNESIUM - SERUM 1.8 mg/dL (1.8-2.4)
[2017-03-26] VITALS (91 sets, daily range): BP systolic 85–149; BP diastolic 33–53
[2017-03-26 05:08] LABS: HEMATOCRIT 27.6 % (42.0-54.0); HEMOGLOBIN 8.8 g/dL (13.5-17.5); MCH 26.9 pg (26.0-34.0); MCHC 31.9 g/dL (31.0-37.0); MCV 84.4 fL (80.0-100.0); PLATELET COUNT 122 10x3/uL (130-400); RBC 3.27 10x6/uL (4.20-6.10); RDW 18.3 % (11.5-14.5)
[2017-03-26 05:13] LABS: WBC 14.1 10x3/uL (4.8-10.8)
[2017-03-26 05:14] LABS: BASOPHILS 0.3 % (0-2); EOSINOPHILS 0.2 % (0-7); LYMPHOCYTES 10.5 % (15-50); MEAN PLATELET VOLUME 14 fL (7.4-10.4); MONOCYTES 5.7 % (2-11); NEUTROPHILS 81.6 % (40-80)
[2017-03-26 05:15] LABS: IMMATURE GRANULOCYTES 1.7 % (0-5)
[2017-03-26 05:40] LABS: INR 1.44 (0.85-1.17)
[2017-03-26 09:33] LABS: ALBUMIN 1.8 g/dL (3.4-5.0); BILIRUBIN - TOTAL 6.43 mg/dL (0.2-1.3); CARBON DIOXIDE 25.3 mmol/L (21.0-32.0); CREATININE - SERUM 3.3 mg/dL (0.6-1.3); MAGNESIUM - SERUM 1.8 mg/dL (1.8-2.4); PHOSPHOROUS 2.5 mg/dL (2.5-4.9); POTASSIUM - SERUM 4.3 mmol/L (3.5-5.1); PROTEIN - SERUM 3.9 g/dL (6.4-8.2)
[2017-03-27] VITALS (93 sets, daily range): BP systolic 85–140; BP diastolic 32–72
[2017-03-27 05:18] LABS: INR 1.52 (0.85-1.17); PROTIME 17.8 SECONDS (11.6-15.0)
[2017-03-27 05:27] LABS: HEMATOCRIT 27.4 % (42.0-54.0); HEMOGLOBIN 8.7 g/dL (13.5-17.5); MCH 27.2 pg (26.0-34.0); MCHC 31.8 g/dL (31.0-37.0); MCV 85.6 fL (80.0-100.0); NEUTROPHILS 84.4 % (40-80); PLATELET COUNT 99 10x3/uL (130-400); RDW 19.8 % (11.5-14.5); WBC 15.5 10x3/uL (4.8-10.8)
[2017-03-27 05:43] LABS: ALBUMIN 2.1 g/dL (3.4-5.0); ANION GAP 11.9 mmol/L (8-16); CALCIUM 7.5 mg/dL (8.5-10.1); CARBON DIOXIDE 27.6 mmol/L (21.0-32.0); CREATININE - SERUM 3.3 mg/dL (0.6-1.3); MAGNESIUM - SERUM 1.9 mg/dL (1.8-2.4); POTASSIUM - SERUM 4.5 mmol/L (3.5-5.1); PROTEIN - SERUM 4.7 g/dL (6.4-8.2)
[2017-03-27 05:44] LABS: PHOSPHOROUS 3.3 mg/dL (2.5-4.9)
[2017-03-28] VITALS (93 sets, daily range): BP systolic 76–235; BP diastolic 00–79
[2017-03-28 04:41] LABS: VANCOMYCIN - RANDOM 18.2 ug/mL (10.0-20.0)
[2017-03-28 04:43] LABS: PHOSPHOROUS 4.5 mg/dL (2.5-4.9)
[2017-03-28 05:16] LABS: HEMOGLOBIN 8.4 g/dL (13.5-17.5); MCH 26.9 pg (26.0-34.0); MCHC 31.1 g/dL (31.0-37.0); MCV 86.5 fL (80.0-100.0); PLATELET COUNT 112 10x3/uL (130-400); RBC 3.12 10x6/uL (4.20-6.10); RDW 19.9 % (11.5-14.5); WBC 15.9 10x3/uL (4.8-10.8)
[2017-03-28 05:31] LABS: ALBUMIN 2.1 g/dL (3.4-5.0); ALKALINE PHOSPHATASE 161 U/L (46-116); ALT (SGPT) 21 U/L (10-68); CARBON DIOXIDE 23.8 mmol/L (21.0-32.0); CHLORIDE - SERUM 99 mmol/L (98-107); GLUCOSE 204 mg/dL (74-106); PROTEIN - SERUM 4.3 g/dL (6.4-8.2); SODIUM 134 mmol/L (136-145)
[2017-03-28 05:34] LABS: CALC OSMOLALITY 280 mosm/kg (275-300); CREATININE - SERUM 4.5 mg/dL (0.6-1.3); POTASSIUM - SERUM 5.6 mmol/L (3.5-5.1); UREA NITROGEN 31 mg/dL (7-18); eGFR NON AFRICAN AMERICAN 13 mL/min (90-120)
[2017-03-28 05:40] LABS: CKMB 1.9 U/L (0.0-3.6); CREATINE KINASE 455 UL (21-232); TROPONIN-I 0.059 ng/mL (0.000-0.060)
[2017-03-28 05:57] LABS: BASOPHILS 1 % (0-2); LYMPHOCYTES 6 % (15-50); MONOCYTES 3 % (2-11); NEUTROPHILS 85 % (40-80)
[2017-03-28 06:01] LABS: PLATELET ESTIMATE DECREASED; TARGET CELLS 1+; TOXIC GRANULATION 1+
[2017-03-29] VITALS (60 sets, daily range): BP systolic 87–139; BP diastolic 30–67
[2017-03-29 05:04] LABS: HEMATOCRIT 26.3 % (42.0-54.0); HEMOGLOBIN 8.3 g/dL (13.5-17.5); LYMPHOCYTES 16.5 % (15-50); MCH 27.2 pg (26.0-34.0); MCHC 31.6 g/dL (31.0-37.0); MCV 86.2 fL (80.0-100.0); NEUTROPHILS 75.6 % (40-80); PLATELET COUNT 131 10x3/uL (130-400); RBC 3.05 10x6/uL (4.20-6.10); RDW 20.9 % (11.5-14.5); WBC 16.9 10x3/uL (4.8-10.8)
[2017-03-29 05:06] LABS: APTT 48.3 SECONDS (22.8-39.4); INR 1.95 (0.85-1.17); PROTIME 21.7 SECONDS (11.6-15.0)
[2017-03-29 05:37] LABS: ALBUMIN 2.2 g/dL (3.4-5.0); ALKALINE PHOSPHATASE 176 U/L (46-116); ALT (SGPT) 22 U/L (10-68); CALC OSMOLALITY 277 mosm/kg (275-300); CALCIUM 7.3 mg/dL (8.5-10.1); CARBON DIOXIDE 23.2 mmol/L (21.0-32.0); CHLORIDE - SERUM 99 mmol/L (98-107); CREATININE - SERUM 4.5 mg/dL (0.6-1.3); GLUCOSE 194 mg/dL (74-106); POTASSIUM - SERUM 5.8 mmol/L (3.5-5.1); PROTEIN - SERUM 4.9 g/dL (6.4-8.2); SODIUM 133 mmol/L (136-145); UREA NITROGEN 33 mg/dL (7-18); VANCOMYCIN - RANDOM 14.1 ug/mL (10.0-20.0); eGFR NON AFRICAN AMERICAN 13 mL/min (90-120)
[2017-03-29 05:38] LABS: CREATINE KINASE 285 UL (21-232)
[2017-03-29 07:43] LABS: MAGNESIUM - SERUM 2.3 mg/dL (1.8-2.4); PHOSPHOROUS 6.2 mg/dL (2.5-4.9)
[2017-03-30] VITALS (91 sets, daily range): BP systolic 82–152; BP diastolic 34–453
[2017-03-30 04:42] LABS: HEMATOCRIT 26.5 % (42.0-54.0); HEMOGLOBIN 8.4 g/dL (13.5-17.5); LYMPHOCYTES 10.8 % (15-50); MCH 27.2 pg (26.0-34.0); MCHC 31.7 g/dL (31.0-37.0); MCV 85.8 fL (80.0-100.0); NEUTROPHILS 84.1 % (40-80); PLATELET COUNT 124 10x3/uL (130-400); RBC 3.09 10x6/uL (4.20-6.10); RDW 21.4 % (11.5-14.5)
[2017-03-30 04:43] LABS: INR 2.22 (0.85-1.17)
[2017-03-30 04:50] LABS: ALBUMIN 2.3 g/dL (3.4-5.0); ANION GAP 17.2 mmol/L (8-16); BILIRUBIN - TOTAL 15.3 mg/dL (0.2-1.3); CARBON DIOXIDE 23.1 mmol/L (21.0-32.0); CREATININE - SERUM 3.8 mg/dL (0.6-1.3); POTASSIUM - SERUM 5.3 mmol/L (3.5-5.1); PROTEIN - SERUM 4.5 g/dL (6.4-8.2); VANCOMYCIN - RANDOM 12.1 ug/mL (10.0-20.0)
[2017-03-30 04:57] LABS: CALCIUM 6.9 mg/dL (8.5-10.1)
[2017-03-30 05:19] LABS: APPEARANCE CLOUDY (CLEAR); COLOR BROWN (YELLOW); GLUCOSE 250 mg/dL (NEGATIVE); NITRITE NEGATIVE (NEGATIVE); PROTEIN 3+ mg/dL (NEGATIVE)
[2017-03-30 05:20] LABS: BILIRUBIN NEGATIVE (NEGATIVE); KETONE NEGATIVE (NEGATIVE); UROBILINOGEN NORMAL (NORMAL)
[2017-03-30 05:21] LABS: BACTERIA MANY /hpf (NONE SEEN); EPITHELIAL CELLS 0-5 /hpf (0-5); RED CELLS - URINE 0-5 /hpf (0-5); WHITE CELLS - URINE 0-5 /hpf (0-5)
[2017-03-30 10:13] LABS: MAGNESIUM - SERUM 1.9 mg/dL (1.8-2.4); PHOSPHOROUS 5.9 mg/dL (2.5-4.9)
[2017-03-31] VITALS (57 sets, daily range): BP systolic 90–133; BP diastolic 34–77
[2017-03-31 04:37] LABS: HEMATOCRIT 24.9 % (42.0-54.0); HEMOGLOBIN 7.7 g/dL (13.5-17.5); LYMPHOCYTES 10.5 % (15-50); MCH 27.4 pg (26.0-34.0); MCHC 30.9 g/dL (31.0-37.0); NEUTROPHILS 83.1 % (40-80); PLATELET COUNT 120 10x3/uL (130-400); RBC 2.81 10x6/uL (4.20-6.10); RDW 22.1 % (11.5-14.5); WBC 19.2 10x3/uL (4.8-10.8)
[2017-03-31 04:38] LABS: MCV 88.6 fL (80.0-100.0)
[2017-03-31 04:43] LABS: INR 2.38 (0.85-1.17); PROTIME 25.3 SECONDS (11.6-15.0)
[2017-03-31 04:44] LABS: ALBUMIN 2.3 g/dL (3.4-5.0); ANION GAP 16.6 mmol/L (8-16); BILIRUBIN - TOTAL 15.8 mg/dL (0.2-1.3); CARBON DIOXIDE 23.1 mmol/L (21.0-32.0); CREATININE - SERUM 4.5 mg/dL (0.6-1.3); POTASSIUM - SERUM 5.7 mmol/L (3.5-5.1); PROTEIN - SERUM 4.8 g/dL (6.4-8.2); VANCOMYCIN - RANDOM 16.4 ug/mL (10.0-20.0)
[2017-03-31 04:45] LABS: PHOSPHOROUS 7.7 mg/dL (2.5-4.9)
[2017-04-01] VITALS (93 sets, daily range): BP systolic 90–134; BP diastolic 28–59
[2017-04-01 04:38] LABS: HEMATOCRIT 25.3 % (42.0-54.0); MCHC 31.6 g/dL (31.0-37.0); MCV 88.5 fL (80.0-100.0); NEUTROPHILS 78.8 % (40-80); PLATELET COUNT 134 10x3/uL (130-400); RBC 2.86 10x6/uL (4.20-6.10); RDW 22.9 % (11.5-14.5); WBC 23.9 10x3/uL (4.8-10.8)
[2017-04-01 04:52] LABS: ANION GAP 15.3 mmol/L (8-16); CALCIUM 7.2 mg/dL (8.5-10.1); CARBON DIOXIDE 25.8 mmol/L (21.0-32.0); CREATININE - SERUM 3.7 mg/dL (0.6-1.3); POTASSIUM - SERUM 5.1 mmol/L (3.5-5.1); VANCOMYCIN - RANDOM 18.3 ug/mL (10.0-20.0)
[2017-04-01 04:53] LABS: PHOSPHOROUS 5.7 mg/dL (2.5-4.9)
[2017-04-01 05:57] LABS: ALBUMIN 2.4 g/dL (3.4-5.0); BILIRUBIN - DIRECT 13.33 mg/dL (0.00-0.30); BILIRUBIN - INDIRECT 3.97 mg/dL (0.00-1.00); BILIRUBIN - TOTAL 17.3 mg/dL (0.2-1.3); PROTEIN - SERUM 5.1 g/dL (6.4-8.2)
[2017-04-01 09:15] LABS: INR 2.2 (0.85-1.17); PROTIME 23.8 SECONDS (11.6-15.0)
[2017-04-02] VITALS (53 sets, daily range): BP systolic 87–130; BP diastolic 28–89
[2017-04-02 04:54] LABS: HEMATOCRIT 24.5 % (42.0-54.0); HEMOGLOBIN 7.7 g/dL (13.5-17.5); LYMPHOCYTES 18.8 % (15-50); MCH 28.3 pg (26.0-34.0); MCHC 31.4 g/dL (31.0-37.0); MCV 90.1 fL (80.0-100.0); PLATELET COUNT 150 10x3/uL (130-400); RBC 2.72 10x6/uL (4.20-6.10); WBC 23.2 10x3/uL (4.8-10.8)
[2017-04-02 05:08] LABS: ANION GAP 16.4 mmol/L (8-16); CALCIUM 7.6 mg/dL (8.5-10.1); CARBON DIOXIDE 24.3 mmol/L (21.0-32.0); CREATININE - SERUM 3.3 mg/dL (0.6-1.3); MAGNESIUM - SERUM 2.3 mg/dL (1.8-2.4); PHOSPHOROUS 5.1 mg/dL (2.5-4.9); POTASSIUM - SERUM 4.7 mmol/L (3.5-5.1)
== END 2017-04-02 15:55 | DRG 329 ==
LOC: D.ER 10:37 → D.M2 14:10 → D.ICU 14:10 → D.M2 03-13 10:36 → D.ICU 03-16 16:32
PROVIDERS: Emergency Medicine; Family Medicine; Internal Medicine Gastroenterology; Internal Medicine Nephrology; Internal Medicine Pulmonary Disease; Student in an Organized Health Care Education/Training Program; Surgery
PROC: 0T9B70Z Drainage of Bladder with Drainage Device, Via Natural or Artificial Opening (ICD-10-PCS; principal; 2017-03-06)
PROC: 0D9670Z Drainage of Stomach with Drainage Device, Via Natural or Artificial Opening (ICD-10-PCS; 2017-03-06)
PROC: 02HV33Z Insertion of Infusion Device into Superior Vena Cava, Percutaneous Approach (ICD-10-PCS; 2017-03-11)
PROC: 0D9670Z Drainage of Stomach with Drainage Device, Via Natural or Artificial Opening (ICD-10-PCS; 2017-03-16)
PROC: 0DD98ZX Extraction of Duodenum, Via Natural or Artificial Opening Endoscopic, Diagnostic (ICD-10-PCS; 2017-03-18)
PROC: 0DD78ZX Extraction of Stomach, Pylorus, Via Natural or Artificial Opening Endoscopic, Diagnostic (ICD-10-PCS; 2017-03-18)
PROC: 0DBE8ZX Excision of Large Intestine, Via Natural or Artificial Opening Endoscopic, Diagnostic (ICD-10-PCS; 2017-03-18)
PROC: 0DT80ZZ Resection of Small Intestine, Open Approach (ICD-10-PCS; 2017-03-19)
PROC: 05H633Z Insertion of Infusion Device into Left Subclavian Vein, Percutaneous Approach (ICD-10-PCS; 2017-03-19)
PROC: 03HB33Z Insertion of Infusion Device into Right Radial Artery, Percutaneous Approach (ICD-10-PCS; 2017-03-19)
PROC: 03HC33Z Insertion of Infusion Device into Left Radial Artery, Percutaneous Approach (ICD-10-PCS; 2017-03-19)
PROC: 5A1955Z Respiratory Ventilation, Greater than 96 Consecutive Hours (ICD-10-PCS; 2017-03-19)
PROC: 02H633Z Insertion of Infusion Device into Right Atrium, Percutaneous Approach (ICD-10-PCS; 2017-03-22)
PROC: B244ZZZ Ultrasonography of Right Heart (ICD-10-PCS; 2017-03-22)
DX: K56.7 Ileus, unspecified (principal); J96.01 Acute respiratory failure with hypoxia; J69.0 Pneumonitis due to inhalation of food and vomit; J96.02 Acute respiratory failure with hypercapnia; A41.9 Sepsis, unspecified organism; K63.1 Perforation of intestine (nontraumatic); K65.8 Other peritonitis; N17.0 Acute kidney failure with tubular necrosis; N17.9 Acute kidney failure, unspecified; I13.0 Hypertensive heart and chronic kidney disease with heart failure and stage 1 through stage 4 chronic kidney disease, or unspecified chronic kidney disease; J98.11 Atelectasis; E87.2 Acidosis; I50.22 Chronic systolic (congestive) heart failure; E87.0 Hyperosmolality and hypernatremia; D62 Acute posthemorrhagic anemia; T82.7XXA Infection and inflammatory reaction due to other cardiac and vascular devices, implants and grafts, initial encounter; K63.3 Ulcer of intestine; D68.9 Coagulation defect, unspecified; K52.9 Noninfective gastroenteritis and colitis, unspecified; E11.22 Type 2 diabetes mellitus with diabetic chronic kidney disease; N18.9 Chronic kidney disease, unspecified; E78.5 Hyperlipidemia, unspecified; E11.40 Type 2 diabetes mellitus with diabetic neuropathy, unspecified; I25.10 Atherosclerotic heart disease of native coronary artery without angina pectoris; I73.9 Peripheral vascular disease, unspecified; E86.9 Volume depletion, unspecified; J44.9 Chronic obstructive pulmonary disease, unspecified; F32.9 Major depressive disorder, single episode, unspecified; I48.91 Unspecified atrial fibrillation; Z79.4 Long term (current) use of insulin; E87.6 Hypokalemia; E87.5 Hyperkalemia; E83.42 Hypomagnesemia; K72.90 Hepatic failure, unspecified without coma; Y83.8 Other surgical procedures as the cause of abnormal reaction of the patient, or of later complication, without mention of misadventure at the time of the procedure; E88.09 Other disorders of plasma-protein metabolism, not elsewhere classified; K25.9 Gastric ulcer, unspecified as acute or chronic, without hemorrhage or perforation; Z78.1 Physical restraint status; Z95.5 Presence of coronary angioplasty implant and graft; Z87.891 Personal history of nicotine dependence